=== PATIENT | female | born 1985 | race Caucasian/White ===

== ENCOUNTER 2023-08-31 10:36 | Emergency (ER) | payer OTHER, SELFPAY ==
[2023-08-31 10:49] VITALS: BP 118/83
--- NOTE | 2023-08-31 12:03 | ED.GENMED ---
History of Present Illness
General
Chief Complaint: Seizure
Source: patient and child care assistant
Exam Limitations: none
Time Seen by Provider: 08/31/23 11:53
Nursing documentation reviewed up to this point in time: agreed with
Travel History
Have you had any contact with someone who has COVID-19?: No
Do you have any symptoms of coronavirus? Fever > 100 degrees, chills, cough, shortness of breath, sore throat, loss of taste or smell, muscle aches, or headache?: No
History of Present Illness
History of Present Illness:
38-year-old female with past medical history of seizure disorder on multiple meds, anxiety bipolar disorder presenting to the emergency department today with concerns of a seizure this morning lasted for few seconds according to staff it was
witnessed. She did fall due to this and hit her top of her head but denies additional trauma does have pain to the top of her head at this point since then has been feeling lightheaded did have an episode of vomiting minimal ongoing nausea. Denies
specific focal numbness weakness chest pain abdominal pain or back pain. She claims that she has been taking all medications as prescribed
Past History
Past History
ED Past Medical History: Seizures, Psychiatric (Bipolar affective disorder) and Other (Obesity)
ED Past Surgical History: Other (History of brain surgery, and foot surgery, VNS)
Social History
Tobacco: Non-smoker
Alcohol: None
Drug: None
Personal: Single
Living: other (SHARED SUPPORT)
Employment: Disabled
Family History
Family History: Unable to obtain
Review of Systems
Review of Systems
Allergies reviewed?: Yes
All Other Systems: ROS reviewed and negative except as documented in HPI and ROS
Phy Exam
Physical Exam
Physical Exam:
GENERAL: Alert , in no apparent distress
EYE: pupils equal and reactive
NECK: Supple, no significant adenopathy.
ENT: o/p clr, mmm.
CARDIAC: Regular rate and rhythm .
LUNGS: Clear breath sounds bilaterally, no acute respiratory distress, no wheezes/rales/rhonchi
ABDOMEN: Soft, without focal tenderness, no r/g, no cvat
NEUROLOGICAL: Alert and oriented, no focal neuro deficits 5/5 upper and lower extremity strength normal sensation with palpating bilaterally normal finger-nose no exam no pronator drift.
SKIN: Warm and dry, skin intact.
MUSCULOSKELETAL: No edema, well perfused.
PSYCH: Normal and appropriate interaction.
Course
Orders/Labs/Results
Orders:
Orders
08/31/23 12:00
CT Head W/o Iv Contrast Urgent
Comment:
Reason For Exam: fall hit head
0.9% Sodium Chloride 1000 ml [Nss] 1,000 ml IV BOLUS
08/31/23 12:01
Electrocardiogram (*1) Stat
Reason for Study: Other
Other Reason for Exam: neuro symptoms
EKG- Treatment ONCE
08/31/23 12:06
Test Result ONCE
08/31/23 13:43
Beta Hcg Serum Qualitative Screen [HCG, Serum Qualitative Screen] Urgent
Complete Blood Count/With Diff Urgent
Comprehensive Metabolic Panel Urgent
Depakane Urgent
Lamictal [Lamotrigine (Lamictal)] [S] Urgent
Topiramate (Topamax) [S] Urgent
08/31/23 14:59
Primidone and Metabolite [S] Urgent
Comment: PLEASE COLLECT 2 RED NSST
Abnormal Lab Results
08/31/23
13:43
MCHC 31.4 L g/dL
(33.0-37.0)
RDW 14.6 H %
(11.5-14.5)
Neutrophils % 77.9 H %
(42.2-75.2)
Lymphocytes % 16.8 L %
(20.5-51.1)
Carbon Dioxide 21 L mmol/L
(22-30)
08/31/23 13:43
08/31/23 13:43
Vital Signs
Initial and Last Documented VS:
Initial Vital Signs
Temp Pulse Resp BP Pulse Ox
98.1 F 72 18 118/83 96
08/31/23 10:49 08/31/23 10:49 08/31/23 10:49 08/31/23 10:49 08/31/23 10:49
Last Documented Vital Signs
Temp Pulse Resp BP Pulse Ox
98.1 F 72 18 118/83 96
08/31/23 10:49 08/31/23 10:49 08/31/23 10:49 08/31/23 10:49 08/31/23 10:49
MDM/Problems Addressed
MDM/Problems Addressed:
38-year-old female presenting to the emergency department today with concerns of a seizure this morning. Does have these frequently and has multiple per week despite appropriate care and close follow-up with Luke. Today she had a fall and hit the
top of her head after falling she has had ongoing lightheadedness and episode of vomiting and does have some ongoing nausea. No visible signs of trauma on exam normal neurologic evaluation from head to toe patient was able to give me full history
and is able to interact normally. Patient in no distress throughout ER stay labs unremarkable CT negative valproic acid level normal. Patient able to walk with steady gait stable for discharge advised for close follow-up with neurology.
*Critical Care Note
Total Time (30-74mins, 75-104mins- exclusive of procedures): Not Applicable
ED Attending Note
-
Portions of this chart may have been created with voice recognition software.� Occasional wrong word or��sound alike� substitutions may have occurred due to the inherent limitations of voice recognition software.
Discharge Plan
Departure
Patient Disposition: Home (Routine Discharge)
Date of Disposition: 08/31/23
Time of Disposition: 15:13
Patient with high blood pressure during this ER visit?: No
Condition: Good
Covid-19: Not Applicable
Discharge Problem:
Seizure
Instructions: Seizures, Adult (DC)
Prescriptions:
No Action
lamotrigine [Lamictal] 200 MG tablet
200 mg PO Q12H
melatonin 3 MG tablet
3 mg PO HS
primidone 250 MG tablet
250 mg PO Q12H
topiramate [Topamax] 200 MG tablet
200 mg PO BID
pyridoxine (vitamin B6) [Vitamin B-6] 100 MG tablet
300 mg PO BID
mirtazapine 15 MG tablet
15 mg PO HS
Patient Comments:
08/28/2020: take w/ 7.5mg = 22.5mg
diazepam [Valium] 10 MG tablet
10 mg PO BID@0800,1700
Patient Comments:
08/28/2020: last filled 07/05/20, 60 tabs for 30 days from [facility]
cholecalciferol (vitamin D3) 1,000 UNITS tablet
1,000 units PO DAILY
multivitamin with folic acid [Tab-A-Sandra] 1 TABLET tablet
1 tab PO DAILY
sennosides-docusate sodium [Senokot-S] 8.6-50 mg Tablet
2 tab-cap PO DAILY
cyanocobalamin (vitamin B-12) [Vitamin B-12] 1,000 mcg Tablet
1,000 mcg PO DAILY
folic acid 1 mg tablet
1 mg PO DAILY
aripiprazole 20 mg tablet
20 mg PO DAILY
triamcinolone acetonide 0.1 % Cream
1 applic TOPICAL HS PRN (Reason: eczema)
Rx Instructions:
apply to both hands
hydrocortisone [Anusol-HC] 2.5 % Cream With Perineal Applicator
1 applic [place] BID PRN (Reason: hemmorrhoids)
benzonatate 100 mg Capsule
100 mg PO TID PRN (Reason: cough)
Nayzilam 5 mg/spray (0.1 mL) [place],Non-Aerosol
1 spray INTRANASAL PRN PRN (Reason: seizure>3min/cluster)
Rx Instructions:
Seizure > 3 min/ Seizures cluster, may repeat one time in other nostril if seizure persists in additional 10 mins
naltrexone 50 mg Tablet
50 mg PO DAILY
pseudoephedrine-guaifenesin [Mucinex D] 60-600 mg Tablet Extended Release 12 Hr
1 tab PO BID PRN (Reason: cold symptoms)
valproic acid 250 mg capsule
1,000 mg PO Q12H
lamotrigine 25 mg tablet
50 mg PO HS
ibuprofen 400 mg Tablet
400 mg PO Q4H PRN (Reason: mild pain)
sertraline 50 mg tablet
50 mg PO DAILY
Referrals:
Enedelia Naylor CRNP [Family Provider] -
Activity Restrictions/Additional Instructions:
You came to the emergency department today after open describes as a seizure. Here had a reassuring evaluation with normal head CT normal labs EKG. You may have a mild concussion. Please rest over the next few days as this should improve. Return
to the emergency department any worsening, new or concerning symptoms. Please get close follow-up with the primary care doctor within 1 to 2 days for reassessment.
Interventions
Interventions:
*Risk Screen - Suicide Last Done: 08/31/23 11:46
*General Assessment Last Done: 08/31/23 11:46
*Neglect/Abuse Screening Last Done: 08/31/23 11:46
*ED COVID-19 Vaccine History Last Done: 08/31/23 10:49
ED- Pulmonary Assessment Last Done: 08/31/23 11:46
ED- Neurological Assessment Last Done: 08/31/23 11:46
ED- Cardiac Assessment Last Done: 08/31/23 11:46
ED Swallowing Screen Last Done: 08/31/23 14:00
Discharge Date and Time
Print Language: AMERICAN
[2023-08-31] MEDS: NSS 1000 IV (13:14)
[2023-08-31 13:51] LABS: % Basophils 0.3 % (0-2); % Eosinophils 0.1 % (0-6); % Immature Granulocytes 0.3 % (0-0.5); % Lymphocytes 16.8 % (20.5-51.1); % Monocytes 4.6 % (1.7-9.3); % Neutrophils 77.9 % (42.2-75.2); Absolute Lymphocytes 1.3 10^3/uL (1.2-3.4); Absolute Monocytes 0.4 10^3/uL (0.1-0.6); Absolute Neutrophils 6.1 10^3/uL (1.4-6.5); Hematocrit 39.8 % (37.0-47.0); Hemoglobin 12.5 g/dL (12.0-16.0); Mean Corp Hgb Conc. 31.4 g/dL (33.0-37.0); Mean Corpuscular Hgb 28.2 pg (27.0-31.0); Mean Corpuscular Volume 89.6 fL (81.0-99.0); Nucleated Red Blood Cells % 0 %; Platelet Count 200 10^3/uL (130-400); Red Blood Cell Count 4.44 10^6/uL (4.20-5.40); Red Cell Dist. Width 14.6 % (11.5-14.5); White Blood Cell Count 7.9 10^3/uL (4.8-10.8)
[2023-08-31 14:10] LABS: HCG, Serum Qualitative Screen Negative
[2023-08-31 14:15] LABS: Depakane 54.7 ug/ml (50.0-120.0)
[2023-08-31 14:18] LABS: ALT (SGPT) 22 U/L (0-35); AST (SGOT) 36 U/L (14-36); Albumin 4.8 g/dl (3.5-5.0); Alkaline Phosphatase 52 U/L (38-126); Blood Urea Nitrogen 17 mg/dl (7-17); Calcium 9.4 mg/dl (8.4-10.2); Carbon Dioxide 21 mmol/L (22-30); Chloride 106 mmol/L (98-107); Glucose 98 mg/dl (70-99); Sodium 135 mmol/L (135-145); Total Bilirubin 0.4 mg/dl (0.2-1.3); Total Protein 7.8 g/dl (6.3-8.2); eGFR > 60.00
[2023-08-31 15:33] VITALS: BP 115/85
[2023-09-03 14:03] LABS: Lamotrigine (Lamictal) 11.7 ug/mL (3.0-15.0); Topiramate (Topamax) 4.9 ug/mL (5.0-20.0)
[2023-09-03 14:07] LABS: Primidone 3.6 ug/mL (5.0-12.0)
== END 2023-08-31 15:35 | disposition home or self-care (01) ==
LOC: EMR 10:36
PROVIDERS: Physician Assistant; EMERGENCY PHYSICIAN Emergency Medicine; FAMILY PHYSICIAN Nurse Practitioner Family
DX: G40.909 Epilepsy, unspecified, not intractable, without status epilepticus (principal); F41.9 Anxiety disorder, unspecified; F31.9 Bipolar disorder, unspecified; E66.9 Obesity, unspecified
CPT/HCPCS: 99284; 70450; 80053; 80164; 80175; 80184; 80188; 80201; 84703; 85025; 93005

== ENCOUNTER 2023-09-23 10:16 | Emergency (ER) | payer OTHER, SELFPAY ==
[2023-09-23 10:18] VITALS: BP 165/93
--- NOTE | 2023-09-23 11:10 | ED.GENMED ---
History of Present Illness
General
Chief Complaint: Head Injury
Source: patient and patient care secretary
Exam Limitations: clinical condition
Time Seen by Provider: 09/23/23 10:28
Travel History
Have you had any contact with someone who has COVID-19?: No
Do you have any symptoms of coronavirus? Fever > 100 degrees, chills, cough, shortness of breath, sore throat, loss of taste or smell, muscle aches, or headache?: No
History of Present Illness
History of Present Illness:
38-year-old female with a long history of seizures presents after falling and hitting her head fairly hard. Her caregiver thinks she probably had a brief seizure. She has no increase in her frequency of seizures. Normally has 1-2 to per day.
Here because of potential head injury. Patient is complaining of some headache. No other complaints or injury.
Past History
Past History
ED Past Medical History: Seizures, Psychiatric (Bipolar affective disorder) and Other (Obesity)
ED Past Surgical History: Other (History of brain surgery, and foot surgery, VNS)
Social History
Tobacco: Non-smoker
Alcohol: None
Drug: None
Personal: Single
Living: other (SHARED SUPPORT)
Employment: Disabled
Family History
Family History: Unable to obtain
Review of Systems
Review of Systems
All Other Systems: Not applicable
Constitutional: Denies fever
Respiratory: Reports no symptoms
Cardiac: Reports no symptoms
ABD/GI: Reports no symptoms
Phy Exam
Physical Exam
Physical Exam:
GENERAL: Alert and oriented. No distress. No obvious scalp trauma. However she does point to the top of the head as to the location of her headache.
EYE: Orbits normal.
NECK: Supple, nontender
ENT: Pharynx without erythema
CARDIAC: Regular rate and rhythm without any obvious murmurs.
LUNGS: Clear breath sounds,normal
ABDOMEN: Soft, without focal tenderness or distention
NEUROLOGICAL: Alert. Nonfocal
SKIN: Warm and dry, no rash or lesion, no discoloration, skin intact.
MUSCULOSKELETAL: No edema,no deformity.Good color
PSYCH: Normal and appropriate interaction.
Course
Orders/Labs/Results
Orders:
Orders
09/23/23 10:39
CT Cervical Spine W/o Iv Contr Urgent
Comment:
Reason For Exam: trauma
CT Head W/o Iv Contrast Urgent
Comment:
Reason For Exam: trauma
Cardiac Monitoring- Treatment ONCE
Vital Signs
Initial and Last Documented VS:
Initial Vital Signs
Temp Pulse Resp BP Pulse Ox
99.0 F 90 16 165/93 96
09/23/23 10:18 09/23/23 10:18 09/23/23 10:18 09/23/23 10:18 09/23/23 10:18
Last Documented Vital Signs
Temp Pulse Resp BP Pulse Ox
99.0 F 78 24 104/68 99
09/23/23 10:18 09/23/23 12:15 09/23/23 12:15 09/23/23 12:00 09/23/23 12:15
MDM/Problems Addressed
Differential Diagnosis Includes:
Patient will have a CT of the head and cervical spine based on the mechanism. Clinically no findings of any significant trauma. No chest wall tenderness abdomen is nontender pelvis is stable. Lower extremities are negative. Upper extremities are
negative. She apparently got up and ambulated after this episode. As for her seizures these are baseline and does not warrant further evaluation at this time.
*Radiology
Radiology exam reviewed: radiology read reviewed (Negative CTs)
*Pulse Oximetry
Patient hypoxic: no
*Keyboard Specialist Interpretation
Rate: normal
Interpretation: normal
Heart Rate: 70
Rhythm: sinus
*Critical Care Note
Total Time (30-74mins, 75-104mins- exclusive of procedures): Not Applicable
Data Reviewed
Review of Other/Old Records Reveals: Labs, Records and Testing
Update Note
Update Note:
Patient medically stable. Neurologic baseline. Again no indication for further seizure workup. This has been stable. Discharged to follow-up
ED Attending Note
-
Portions of this chart may have been created with voice recognition software.� Occasional wrong word or��sound alike� substitutions may have occurred due to the inherent limitations of voice recognition software.
Discharge Plan
Departure
Patient Disposition: Home (Routine Discharge)
Date of Disposition: 09/23/23
Time of Disposition: 12:35
Patient with high blood pressure during this ER visit?: No
Discharge Problem:
Head injury, Seizure/history of seizures
Instructions: Seizures, Adult (DC), Head Injury in Adults (DC)
Prescriptions:
No Action
lamotrigine [Lamictal] 200 MG tablet
200 mg PO Q12H
melatonin 3 MG tablet
3 mg PO HS
primidone 250 MG tablet
250 mg PO Q12H
topiramate [Topamax] 200 MG tablet
200 mg PO BID
pyridoxine (vitamin B6) [Vitamin B-6] 100 MG tablet
300 mg PO BID
mirtazapine 15 MG tablet
15 mg PO HS
Patient Comments:
08/28/2020: take w/ 7.5mg = 22.5mg
diazepam [Valium] 10 MG tablet
10 mg PO BID@0800,1700
Patient Comments:
08/28/2020: last filled 07/05/20, 60 tabs for 30 days from [facility]
cholecalciferol (vitamin D3) 1,000 UNITS tablet
1,000 units PO DAILY
multivitamin with folic acid [Tab-A-Sandra] 1 TABLET tablet
1 tab PO DAILY
sennosides-docusate sodium [Senokot-S] 8.6-50 mg Tablet
2 tab-cap PO DAILY
cyanocobalamin (vitamin B-12) [Vitamin B-12] 1,000 mcg Tablet
1,000 mcg PO DAILY
folic acid 1 mg tablet
1 mg PO DAILY
aripiprazole 20 mg tablet
20 mg PO DAILY
triamcinolone acetonide 0.1 % Cream
1 applic TOPICAL HS PRN (Reason: eczema)
Rx Instructions:
apply to both hands
hydrocortisone [Anusol-HC] 2.5 % Cream With Perineal Applicator
1 applic [place] BID PRN (Reason: hemmorrhoids)
benzonatate 100 mg Capsule
100 mg PO TID PRN (Reason: cough)
Nayzilam 5 mg/spray (0.1 mL) [place],Non-Aerosol
1 spray INTRANASAL PRN PRN (Reason: seizure>3min/cluster)
Rx Instructions:
Seizure > 3 min/ Seizures cluster, may repeat one time in other nostril if seizure persists in additional 10 mins
naltrexone 50 mg Tablet
50 mg PO DAILY
pseudoephedrine-guaifenesin [Mucinex D] 60-600 mg Tablet Extended Release 12 Hr
1 tab PO BID PRN (Reason: cold symptoms)
valproic acid 250 mg capsule
1,000 mg PO Q12H
lamotrigine 25 mg tablet
50 mg PO HS
ibuprofen 400 mg Tablet
400 mg PO Q4H PRN (Reason: mild pain)
sertraline 50 mg tablet
50 mg PO DAILY
Referrals:
Enedelia Naylor CRNP [Family Provider] - Follow up in 2-3 days
Activity Restrictions/Additional Instructions:
Follow-up with her primary physician and neurologist concerning her seizures
Interventions
Interventions:
*Risk Screen - Suicide Last Done: 09/23/23 10:20
*General Assessment Last Done: 09/23/23 10:37
*Neglect/Abuse Screening Last Done: 09/23/23 10:20
ED- Fall Risk Assessment Last Done: 09/23/23 12:39
*ED COVID-19 Vaccine History Last Done: 09/23/23 10:37
*Nursing Disposition Last Done: 09/23/23 12:39
ED- Neurological Assessment Last Done: 09/23/23 10:37
ED-Skin Assessment Last Done: 09/23/23 10:39
Discharge Date and Time
Print Language: BANGLADESHI
[2023-09-23 11:38] VITALS: BP 97/69
[2023-09-23 12:00] VITALS: BP 104/68
== END 2023-09-23 12:48 | disposition home or self-care (01) ==
LOC: EMR 10:16
PROVIDERS: EMERGENCY PHYSICIAN Emergency Medicine; FAMILY PHYSICIAN Nurse Practitioner Family
DX: S09.90XA Unspecified injury of head, initial encounter (principal); G40.909 Epilepsy, unspecified, not intractable, without status epilepticus; W19.XXXA Unspecified fall, initial encounter; F31.9 Bipolar disorder, unspecified; E66.9 Obesity, unspecified
CPT/HCPCS: 99284; 70450; 72125

== ENCOUNTER 2023-10-24 18:39 | Emergency (ER) | payer OTHER, SELFPAY ==
[2023-10-24 18:44] VITALS: BP 128/83
[2023-10-24 19:49] LABS: % Basophils 0.4 % (0-2); % Eosinophils 0.6 % (0-6); % Immature Granulocytes 0.3 % (0-0.5); % Monocytes 6.5 % (1.7-9.3); % Neutrophils 55.2 % (42.2-75.2); Absolute Eosinophils 0.1 10^3/uL (0-0.7); Absolute Lymphocytes 2.9 10^3/uL (1.2-3.4); Absolute Monocytes 0.5 10^3/uL (0.1-0.6); Absolute Neutrophils 4.4 10^3/uL (1.4-6.5); Hematocrit 34.7 % (37.0-47.0); Hemoglobin 11.7 g/dL (12.0-16.0); Mean Corp Hgb Conc. 33.7 g/dL (33.0-37.0); Mean Corpuscular Hgb 28.2 pg (27.0-31.0); Mean Corpuscular Volume 83.6 fL (81.0-99.0); Nucleated Red Blood Cells % 0 %; Platelet Count 211 10^3/uL (130-400); Red Blood Cell Count 4.15 10^6/uL (4.20-5.40); Red Cell Dist. Width 14.6 % (11.5-14.5); White Blood Cell Count 7.9 10^3/uL (4.8-10.8)
[2023-10-24 20:02] LABS: ALT (SGPT) 16 U/L (0-35); AST (SGOT) 30 U/L (14-36); Albumin 4.3 g/dl (3.5-5.0); Alkaline Phosphatase 37 U/L (38-126); Blood Urea Nitrogen 18 mg/dl (7-17); Calcium 9.5 mg/dl (8.4-10.2); Carbon Dioxide 20 mmol/L (22-30); Chloride 107 mmol/L (98-107); Glucose 101 mg/dl (70-99); Sodium 137 mmol/L (135-145); Total Bilirubin 0.3 mg/dl (0.2-1.3); eGFR > 60.00
--- NOTE | 2023-10-24 23:17 | ED.GENMED ---
History of Present Illness
General
Chief Complaint: Head Injury
Source: patient and home care aide
Exam Limitations: none
Time Seen by Provider: 10/24/23 19:08
Nursing documentation reviewed up to this point in time: agreed with
Travel History
Have you had any contact with someone who has COVID-19?: No
Do you have any symptoms of coronavirus? Fever > 100 degrees, chills, cough, shortness of breath, sore throat, loss of taste or smell, muscle aches, or headache?: No
History of Present Illness
History of Present Illness:
38-year-old female with a past medical history of seizures, tubular sclerosis, GERD, behavioral issues who presents to the emergency room from her living facility accompanied by caregivers for evaluation of head trauma after a seizure. Patient
reportedly has a history of very frequent seizures and is on multiple AEDs. She apparently had an episode today while she [place] where she dropped her knees and had a typical one of her brief seizures. She has since returned to
baseline but during this episode she fell to the ground and hit her head and facility protocol is to send for evaluation given head trauma. Patient says that she feels fine and offers no complaints here. She denies any headache, neck pain, chest
pain abdominal pain, nausea or any other issues. Staff says that she has been compliant with all of her medications. She has been having somewhat more frequent seizures and is following with neurology as an outpatient.
Past History
Past History
ED Past Medical History: Seizures, Psychiatric (Bipolar affective disorder) and Other (Obesity)
ED Past Surgical History: Other (History of brain surgery, and foot surgery, VNS)
Social History
Tobacco: Non-smoker
Alcohol: None
Drug: None
Personal: Single
Living: other (SHARED SUPPORT)
Employment: Disabled
Family History
Family History: Unable to obtain
Review of Systems
Review of Systems
All Other Systems: ROS reviewed and negative except as documented in HPI and ROS
Constitutional: Denies fever
Respiratory: Denies trouble breathing
Cardiac: Denies chest pain
ABD/GI: Denies abdominal pain, nausea or vomiting
: Denies flank pain
Musculoskeletal: Denies neck pain or back pain
Neurological: Denies dizzy, headache, weakness or numbness
Phy Exam
Physical Exam
Physical Exam:
General: Awake, alert, oriented x3; no acute distress
Head: Normocephalic, atraumatic
Eyes: Conjunctiva normal, EOMI, pupils equal round and reactive to light bilaterally
Throat: Airway intact, handling secretions
Neck: Trachea midline, supple without meningismus
Lungs: Clear to auscultation bilaterally, no wheezing, rales, rhonchi
Heart: Regular rate and rhythm, no murmurs, gallops, or rubs
Abd: Soft, non distended, nontender
Neuro: Cranial nerves grossly intact, speech fluid, no motor or sensory deficits
Skin: no rash
Extremities: No edema in extremities, equal pulses in all extremities
Scores
Heart Failure Risk
Heart Failure Risk Score: Not Applicable
Heart Score for Chest Pain Patients
STEMI patient?: Not applicable
Withdrawal Assessment of Alcohol
Withdrawal Assessment Completed?: Not applicable
Course
Orders/Labs/Results
Orders:
Orders
10/24/23 19:10
Electrocardiogram (*1) Urgent
Reason for Study: Syncope
CT Head W/o Iv Contrast Urgent
Comment:
Reason For Exam: seizure, head trauma
EKG- Treatment ONCE
10/24/23 19:43
Complete Blood Count/With Diff Urgent
Comprehensive Metabolic Panel Urgent
Abnormal Lab Results
10/24/23
19:43
RBC 4.15 L 10^6/uL
(4.20-5.40)
Hgb 11.7 L g/dL
(12.0-16.0)
Hct 34.7 L %
(37.0-47.0)
RDW 14.6 H %
(11.5-14.5)
Carbon Dioxide 20 L mmol/L
(22-30)
BUN 18 H mg/dl
(7-17)
Glucose 101 H mg/dl
(70-99)
Alkaline Phosphatase 37 L U/L
(38-126)
10/24/23 19:43
10/24/23 19:43
Vital Signs
Initial and Last Documented VS:
Initial Vital Signs
Temp Pulse Resp BP Pulse Ox
37.3 C 80 18 128/83 98
10/24/23 18:44 10/24/23 18:44 10/24/23 18:44 10/24/23 18:44 10/24/23 18:44
Last Documented Vital Signs
Temp Pulse Resp BP Pulse Ox
37.3 C 80 18 128/83 98
10/24/23 18:44 10/24/23 18:44 10/24/23 18:44 10/24/23 18:44 10/24/23 18:44
MDM/Problems Addressed
Differential Diagnosis Includes:
Minor head trauma
MDM/Problems Addressed:
38-year-old female presents for evaluation after a seizure�had one of her typical seizures but fell and hit her head. Staff brought in for assessment given trauma. Back to baseline now. Vital signs normal. Reassuring exam. Sent for CT head
which was negative. Sent basic screening labs which were essentially unremarkable. Observed here in the emergency room with no additional seizure activity. Will discharge and have patient follow-up with primary neurologist to discuss AED
management.
Chronic conditions affecting care:
Behavioral issues, seizures
*Radiology
Radiology exam reviewed: radiology read reviewed
*Pulse Oximetry
Patient hypoxic: no
*EKG
Interpreted by ED Provider?: Yes
Heart Rate: 80
Rate: normal
Rhythm: sinus
[place]: normal axis
Interval: normal interval
QRS Pattern: normal QRS
Ischemia: no ischemia
*Critical Care Note
Total Time (30-74mins, 75-104mins- exclusive of procedures): Not Applicable
Data Reviewed
Review of Other/Old Records Reveals: Labs and Records
Source: patient and home care aide
ED Attending Note
-
Portions of this chart may have been created with voice recognition software.� Occasional wrong word or��sound alike� substitutions may have occurred due to the inherent limitations of voice recognition software.
Discharge Plan
Departure
Patient Disposition: Home (Routine Discharge)
Date of Disposition: 10/24/23
Time of Disposition: 21:29
Patient with high blood pressure during this ER visit?: No
Discharge Problem:
Seizure, Head trauma
Instructions: Minor Head Injury (DC), Seizures
Prescriptions:
No Action
lamotrigine [Lamictal] 200 MG tablet
200 mg PO Q12H
melatonin 3 MG tablet
3 mg PO HS
primidone 250 MG tablet
250 mg PO Q12H
topiramate [Topamax] 200 MG tablet
200 mg PO BID
pyridoxine (vitamin B6) [Vitamin B-6] 100 MG tablet
300 mg PO BID
mirtazapine 15 MG tablet
15 mg PO HS
Patient Comments:
08/28/2020: take w/ 7.5mg = 22.5mg
diazepam [Valium] 10 MG tablet
10 mg PO BID@0800,1700
Patient Comments:
08/28/2020: last filled 07/05/20, 60 tabs for 30 days from [facility]
cholecalciferol (vitamin D3) 1,000 UNITS tablet
1,000 units PO DAILY
multivitamin with folic acid [Tab-A-Sandra] 1 TABLET tablet
1 tab PO DAILY
sennosides-docusate sodium [Senokot-S] 8.6-50 mg Tablet
2 tab-cap PO DAILY
cyanocobalamin (vitamin B-12) [Vitamin B-12] 1,000 mcg Tablet
1,000 mcg PO DAILY
folic acid 1 mg tablet
1 mg PO DAILY
aripiprazole 20 mg tablet
20 mg PO DAILY
triamcinolone acetonide 0.1 % Cream
1 applic TOPICAL HS PRN (Reason: eczema)
Rx Instructions:
apply to both hands
hydrocortisone [Anusol-HC] 2.5 % Cream With Perineal Applicator
1 applic [place] BID PRN (Reason: hemmorrhoids)
benzonatate 100 mg Capsule
100 mg PO TID PRN (Reason: cough)
Nayzilam 5 mg/spray (0.1 mL) [place],Non-Aerosol
1 spray INTRANASAL PRN PRN (Reason: seizure>3min/cluster)
Rx Instructions:
Seizure > 3 min/ Seizures cluster, may repeat one time in other nostril if seizure persists in additional 10 mins
naltrexone 50 mg Tablet
50 mg PO DAILY
pseudoephedrine-guaifenesin [Mucinex D] 60-600 mg Tablet Extended Release 12 Hr
1 tab PO BID PRN (Reason: cold symptoms)
valproic acid 250 mg capsule
1,000 mg PO Q12H
lamotrigine 25 mg tablet
50 mg PO HS
ibuprofen 400 mg Tablet
400 mg PO Q4H PRN (Reason: mild pain)
sertraline 50 mg tablet
50 mg PO DAILY
Referrals:
UNKNOWN - PT NOT,INTERVIEWE [Family Provider] -
Activity Restrictions/Additional Instructions:
The patient should follow-up with her normal neurologist to discuss management of her seizure medications after this episode.
Thank you for visiting the Emergency Department at [facility].
1. Please schedule a follow up appointment as directed. Call first thing tomorrow morning to make an appointment.
2. If indicated, please take your medications as instructed and indicated on discharge paperwork.
3. If any of your symptoms do not improve, or persist, or become more severe within 6-12 hours, please return to the emergency department for further care.
4. Please return to the emergency department if you develop a headache, neck pain/stiffness, fever greater than 100.4F, chest pain, shortness of breath, persistent nausea, vomiting, slurred speech, difficulty walking, numbness/tingling, weakness,
signs of infection or any other symptoms that are worrisome to you.
Please call [phone] if you have any questions.
Interventions
Interventions:
*Risk Screen - Suicide Last Done: 10/24/23 18:44
*General Assessment Last Done: 10/24/23 18:44
*Neglect/Abuse Screening Last Done: 10/24/23 18:44
ED- Fall Risk Assessment Last Done: 10/24/23 19:11
*ED COVID-19 Vaccine History Last Done: 10/24/23 21:33
*Nursing Disposition Last Done: 10/24/23 21:33
ED- Neurological Assessment Last Done: 10/24/23 19:11
ED-Skin Assessment Last Done: 10/24/23 19:11
Discharge Date and Time
Discharge Date/Time: 10/24/23 21:35
Print Language: ICELANDIC
== END 2023-10-24 21:35 | disposition home or self-care (01) ==
LOC: EMR 18:39
PROVIDERS: EMERGENCY PHYSICIAN Emergency Medicine
DX: R56.9 Unspecified convulsions (principal); S09.90XA Unspecified injury of head, initial encounter; W19.XXXA Unspecified fall, initial encounter
CPT/HCPCS: 99285; 70450; 80053; 85025; 93005

== ENCOUNTER 2023-11-04 10:18 | Emergency (ER) | payer OTHER, SELFPAY ==
[2023-11-04 10:24] VITALS: BP 124/71
--- NOTE | 2023-11-04 10:39 | ED.GENMED ---
History of Present Illness
General
Chief Complaint: Head Injury
Source: patient
Time Seen by Provider: 11/04/23 10:30
Travel History
Have you had any contact with someone who has COVID-19?: No
Do you have any symptoms of coronavirus? Fever > 100 degrees, chills, cough, shortness of breath, sore throat, loss of taste or smell, muscle aches, or headache?: No
History of Present Illness
History of Present Illness:
38-year-old female with past medical history of seizure disorder, anxiety, bipolar disorder, mood disorder presenting to the emergency department with caregiver who states that around 9:15 AM patient had a witnessed seizure while in the bathroom and
hit the back of her head on the shower chair. Per protocol patient was brought to the emergency department to be evaluated. Patient has no complaints at this time including, visual changes, focal weakness or numbness or any other concerns.
Patient denies any tongue lacerations. Per caregiver, patient is at her usual baseline. She gets a couple of seizures per week which is normal for her.
Past History
Past History
ED Past Medical History: Seizures, Psychiatric (Bipolar affective disorder) and Other (Obesity)
ED Past Surgical History: Other (History of brain surgery, and foot surgery, VNS)
Social History
Tobacco: Non-smoker
Alcohol: None
Drug: None
Personal: Single
Living: other ([employer])
Employment: Disabled
Family History
Family History: Unable to obtain
Review of Systems
Review of Systems
All Other Systems: ROS reviewed and negative except as documented in HPI and ROS
Phy Exam
Physical Exam
Physical Exam:
GENERAL: Alert , in no apparent distress
EYE: conjunctiva clear
NECK: Supple
ENT: o/p clr, mmm. No tongue lacerations
CARDIAC: Regular rate and rhythm
LUNGS: Clear breath sounds bilaterally, no acute respiratory distress, no wheezes/rales/rhonchi
NEUROLOGICAL: Alert and oriented x 3
SKIN: Warm and dry, skin intact.
MUSCULOSKELETAL: well perfused.
PSYCH: Normal and appropriate interaction.
Scores
Heart Failure Risk
Heart Failure Risk Score: Not Applicable
Heart Score for Chest Pain Patients
STEMI patient?: Not applicable
Withdrawal Assessment of Alcohol
Withdrawal Assessment Completed?: Not applicable
Course
Vital Signs
Initial and Last Documented VS:
Initial Vital Signs
Temp Pulse Resp BP Pulse Ox
99.0 F 91 18 124/71 98
11/04/23 10:24 11/04/23 10:24 11/04/23 10:24 11/04/23 10:24 11/04/23 10:24
Last Documented Vital Signs
Temp Pulse Resp BP Pulse Ox
99.0 F 91 18 124/71 98
11/04/23 10:24 11/04/23 10:24 11/04/23 10:24 11/04/23 10:24 11/04/23 10:24
MDM/Problems Addressed
Differential Diagnosis Includes:
Breakthrough seizure, no concern for acute intracranial pathology, no signs of infectious etiology
MDM/Problems Addressed:
38-year-old female presenting the emergency department for evaluation after a seizure causing her to fall and hit the back of her head again a shower chair. Patient denying any headache and states she feels fine. Caregiver states patient has been
acting normally but per protocol was advised to bring patient to the ER to be evaluated. At present time I do not feel patient needs a stat CT given lack of symptoms and physical exam findings. No signs of head trauma. Patient and caregiver seem
agreeable but caregiver wanted to contact their boss prior to discharging the patient.
Chronic conditions affecting care: Neurological disorder
Acute Exacerbation and/or Progression of Chronic Illness: Neurological disorder
*Pulse Oximetry
Patient hypoxic: no
*Critical Care Note
Total Time (30-74mins, 75-104mins- exclusive of procedures): Not Applicable
Patient Management
Escalation/DeEscalation of care consider admission/obs:
Spoke to the public area supervisor of patient's facility. They feel comfortable taking the patient back. Aware of return precautions for any severe headache, change in behavior, vomiting or any other concerns. Patient is otherwise stable for discharge.
ED Attending Note
-
Portions of this chart may have been created with voice recognition software.� Occasional wrong word or��sound alike� substitutions may have occurred due to the inherent limitations of voice recognition software.
Discharge Plan
Departure
Patient Disposition: Home (Routine Discharge)
Date of Disposition: 11/04/23
Time of Disposition: 11:00
Patient with high blood pressure during this ER visit?: No
Discharge Problem:
Seizure, Head injury
Instructions: Head Injury in Adults (DC)
Prescriptions:
No Action
lamotrigine [Lamictal] 200 MG tablet
200 mg PO Q12H
melatonin 3 MG tablet
3 mg PO HS
primidone 250 MG tablet
250 mg PO Q12H
topiramate [Topamax] 200 MG tablet
200 mg PO BID
pyridoxine (vitamin B6) [Vitamin B-6] 100 MG tablet
300 mg PO BID
mirtazapine 15 MG tablet
15 mg PO HS
Patient Comments:
08/28/2020: take w/ 7.5mg = 22.5mg
diazepam [Valium] 10 MG tablet
10 mg PO BID@0800,1700
Patient Comments:
08/28/2020: last filled 07/05/20, 60 tabs for 30 days from [facility]
cholecalciferol (vitamin D3) 1,000 UNITS tablet
1,000 units PO DAILY
multivitamin with folic acid [Tab-A-Sandra] 1 TABLET tablet
1 tab PO DAILY
sennosides-docusate sodium [Senokot-S] 8.6-50 mg Tablet
2 tab-cap PO DAILY
cyanocobalamin (vitamin B-12) [Vitamin B-12] 1,000 mcg Tablet
1,000 mcg PO DAILY
folic acid 1 mg tablet
1 mg PO DAILY
aripiprazole 20 mg tablet
20 mg PO DAILY
triamcinolone acetonide 0.1 % Cream
1 applic TOPICAL HS PRN (Reason: eczema)
Rx Instructions:
apply to both hands
hydrocortisone [Anusol-HC] 2.5 % Cream With Perineal Applicator
1 applic [place] BID PRN (Reason: hemmorrhoids)
benzonatate 100 mg Capsule
100 mg PO TID PRN (Reason: cough)
Nayzilam 5 mg/spray (0.1 mL) [place],Non-Aerosol
1 spray INTRANASAL PRN PRN (Reason: seizure>3min/cluster)
Rx Instructions:
Seizure > 3 min/ Seizures cluster, may repeat one time in other nostril if seizure persists in additional 10 mins
naltrexone 50 mg Tablet
50 mg PO DAILY
pseudoephedrine-guaifenesin [Mucinex D] 60-600 mg Tablet Extended Release 12 Hr
1 tab PO BID PRN (Reason: cold symptoms)
valproic acid 250 mg capsule
1,000 mg PO Q12H
lamotrigine 25 mg tablet
50 mg PO HS
ibuprofen 400 mg Tablet
400 mg PO Q4H PRN (Reason: mild pain)
sertraline 50 mg tablet
50 mg PO DAILY
Referrals:
Enedelia Naylor CRNP [Family Provider] -
Interventions
Interventions:
*Risk Screen - Suicide Last Done: 11/04/23 11:00
*General Assessment Last Done: 11/04/23 11:00
*Neglect/Abuse Screening Last Done: 11/04/23 11:00
*ED COVID-19 Vaccine History Last Done: 11/04/23 10:24
*Nursing Disposition Last Done: 11/04/23 11:23
ED- Neurological Assessment Last Done: 11/04/23 11:00
ED-Skin Assessment Last Done: 11/04/23 11:00
Discharge Date and Time
Discharge Date/Time: 11/04/23 11:24
Print Language: [place] KORE[place]
== END 2023-11-04 11:24 | disposition home or self-care (01) ==
LOC: EMR 10:18
PROVIDERS: EMERGENCY PHYSICIAN Emergency Medicine; FAMILY PHYSICIAN Nurse Practitioner Family
DX: G40.909 Epilepsy, unspecified, not intractable, without status epilepticus (principal); S09.90XA Unspecified injury of head, initial encounter; X58.XXXA Exposure to other specified factors, initial encounter; F31.9 Bipolar disorder, unspecified; E66.9 Obesity, unspecified
CPT/HCPCS: 99282

== ENCOUNTER 2023-11-13 13:24 | Emergency (ER) | payer OTHER, SELFPAY ==
[2023-11-13 13:27] VITALS: BP 119/84
--- NOTE | 2023-11-13 13:42 | ED.GENMED ---
History of Present Illness
General
Chief Complaint: Musculo-Skeletal Complaint
Source: patient and care connector
Exam Limitations: none
Time Seen by Provider: 11/13/23 13:35
Nursing documentation reviewed up to this point in time: agreed with
History of Present Illness
History of Present Illness:
38-year-old female presents emergency department due to right foot pain after having a seizure and getting her foot stuck under a cabinet. This occurred on Thursday. While in waiting room she had a seizure. Staff states it is similar to her
previous seizures.
Past History
Past History
ED Past Medical History: Seizures, Psychiatric (Bipolar affective disorder) and Other (Obesity)
ED Past Surgical History: Other (History of brain surgery, and foot surgery, VNS)
Social History
Tobacco: Non-smoker
Alcohol: None
Drug: None
Personal: Single
Living: other (SHARED SUPPORT)
Employment: Disabled
Family History
Family History: Unable to obtain
Review of Systems
Review of Systems
Allergies reviewed?: Yes
All Other Systems: Not applicable
Constitutional: Reports no symptoms
EENT: Reports no symptoms
Respiratory: Reports no symptoms
Cardiac: Reports no symptoms
ABD/GI: Reports no symptoms
: Reports no symptoms
Musculoskeletal: Reports joint pain (Right foot pain)
Skin: Reports no symptoms
Neurological: Reports no symptoms
Endocrine: Reports no symptoms
Hematologic/Lymphatic: Reports no symptoms
Psychiatric: Reports no symptoms
Phy Exam
Physical Exam
Physical Exam:
Physical Exam
General: no apparent distress, not acutely ill
Neck: supple. no meningeal signs. normal posterior pharynx
Heart: s1/s2 regular rate and rhythm, no murmur. equal radial
pulses.
HEENT: Pupils equal round reactive to light, EOMI
Lungs: no acute respiratory distress. clear bilaterally
Abdomen: normal bowel sounds. not tender. no CVAT
Neuro: alert and oriented. no focal neurological deficits cranial nerves II through XII intact
Skin: no rash
Psychiatric: well kept. interactive and cooperative
Extremities: no calf tenderness. negative homans. good distal pulses, mild swelling bilateral feet, mild tenderness to palpation midfoot
Course
Orders/Labs/Results
Orders:
Orders
11/13/23 13:30
CR Foot - Left Min 3 Views Urgent
Comment:
Reason For Exam: injury
11/13/23 15:17
Acetaminophen [Tylenol] 650 mg PO NOW STA
Vital Signs
Initial and Last Documented VS:
Initial Vital Signs
Temp Pulse Resp BP Pulse Ox
98.3 F 102 20 119/84 98
11/13/23 13:27 11/13/23 13:27 11/13/23 13:27 11/13/23 13:27 11/13/23 13:27
Last Documented Vital Signs
Temp Pulse Resp BP Pulse Ox
98.3 F 102 20 119/84 98
11/13/23 13:27 11/13/23 13:27 11/13/23 13:27 11/13/23 13:27 11/13/23 13:27
MDM/Problems Addressed
Differential Diagnosis Includes:
Foot fracture, seizure
MDM/Problems Addressed:
38-year-old female with left foot sprain, seizure while in ED. Seizures similar to prior seizures. Patient stable for discharge.
Chronic conditions affecting care: Neurological disorder (Seizures)
Acute Exacerbation and/or Progression of Chronic Illness: Neurological disorder (Seizures)
*Radiology
Radiology exam reviewed: preliminary read by ED provider (Left foot x-ray no signs of fracture)
*Pulse Oximetry
Patient hypoxic: no
*EKG
Interpreted by ED Provider?: NA
*Flitch Hanger Interpretation
Rate: Flitch Hanger- N/A
*Critical Care Note
Total Time (30-74mins, 75-104mins- exclusive of procedures): Not Applicable
Patient Management
Social determinants of health affecting care: Living situation
Escalation/DeEscalation of care consider admission/obs:
admit not indicated
ED Attending Note
-
Portions of this chart may have been created with voice recognition software.� Occasional wrong word or��sound alike� substitutions may have occurred due to the inherent limitations of voice recognition software.
Discharge Plan
Departure
Patient Disposition: Home (Routine Discharge)
Date of Disposition: 11/13/23
Time of Disposition: 15:14
Patient with high blood pressure during this ER visit?: No
Condition: Good
Discharge Problem:
Sprain of foot, left, Seizure
Instructions: Foot Sprain ED, Seizures, Adult ED
Prescriptions:
No Action
lamotrigine [Lamictal] 200 MG tablet
200 mg PO Q12H
melatonin 3 MG tablet
3 mg PO HS
primidone 250 MG tablet
250 mg PO Q12H
topiramate [Topamax] 200 MG tablet
200 mg PO BID
pyridoxine (vitamin B6) [Vitamin B-6] 100 MG tablet
300 mg PO BID
mirtazapine 15 MG tablet
15 mg PO HS
Patient Comments:
08/28/2020: take w/ 7.5mg = 22.5mg
diazepam [Valium] 10 MG tablet
10 mg PO BID@0800,1700
Patient Comments:
08/28/2020: last filled 07/05/20, 60 tabs for 30 days from [facility]
cholecalciferol (vitamin D3) 1,000 UNITS tablet
1,000 units PO DAILY
multivitamin with folic acid [Tab-A-Sandra] 1 TABLET tablet
1 tab PO DAILY
sennosides-docusate sodium [Senokot-S] 8.6-50 mg Tablet
2 tab-cap PO DAILY
cyanocobalamin (vitamin B-12) [Vitamin B-12] 1,000 mcg Tablet
1,000 mcg PO DAILY
folic acid 1 mg tablet
1 mg PO DAILY
aripiprazole 20 mg tablet
20 mg PO DAILY
triamcinolone acetonide 0.1 % Cream
1 applic TOPICAL HS PRN (Reason: eczema)
Rx Instructions:
apply to both hands
hydrocortisone [Anusol-HC] 2.5 % Cream With Perineal Applicator
1 applic [place] BID PRN (Reason: hemmorrhoids)
benzonatate 100 mg Capsule
100 mg PO TID PRN (Reason: cough)
Nayzilam 5 mg/spray (0.1 mL) [place],Non-Aerosol
1 spray INTRANASAL PRN PRN (Reason: seizure>3min/cluster)
Rx Instructions:
Seizure > 3 min/ Seizures cluster, may repeat one time in other nostril if seizure persists in additional 10 mins
naltrexone 50 mg Tablet
50 mg PO DAILY
pseudoephedrine-guaifenesin [Mucinex D] 60-600 mg Tablet Extended Release 12 Hr
1 tab PO BID PRN (Reason: cold symptoms)
valproic acid 250 mg capsule
1,000 mg PO Q12H
lamotrigine 25 mg tablet
50 mg PO HS
ibuprofen 400 mg Tablet
400 mg PO Q4H PRN (Reason: mild pain)
sertraline 50 mg tablet
50 mg PO DAILY
Referrals:
Enedelia Naylor CRNP [Family Provider] -
Activity Restrictions/Additional Instructions:
Use tylenol 650 mg every 4 hours for pain as needed. Apply ice for periods of 20 minutes for pain and swelling, 3-4 times per day.
Interventions
Interventions:
*Risk Screen - Suicide Last Done: 11/13/23 13:27
*General Assessment Last Done: 11/13/23 13:27
*Neglect/Abuse Screening Last Done: 11/13/23 13:27
ED-Musculoskeletal Assessment Last Done: 11/13/23 14:17
Discharge Date and Time
Print Language: GAMBIAN
[2023-11-13] MEDS: TYLENOL 650 MG PO (15:23)
== END 2023-11-13 15:25 | disposition home or self-care (01) ==
LOC: EMR 13:24
PROVIDERS: EMERGENCY PHYSICIAN Emergency Medicine; FAMILY PHYSICIAN Nurse Practitioner Family
DX: S93.602A Unspecified sprain of left foot, initial encounter (principal); G40.909 Epilepsy, unspecified, not intractable, without status epilepticus; X58.XXXA Exposure to other specified factors, initial encounter; F31.9 Bipolar disorder, unspecified; E66.9 Obesity, unspecified
CPT/HCPCS: 99283; 73630

== ENCOUNTER 2023-11-17 08:13 | Emergency (ER) | payer OTHER, SELFPAY ==
[2023-11-17 08:19] VITALS: BP 142/96
--- NOTE | 2023-11-17 09:23 | ED.GENMED ---
History of Present Illness
General
Chief Complaint: Head Injury
Source: patient and palliative care specialist
Time Seen by Provider: 11/17/23 08:58
History of Present Illness
History of Present Illness:
38-year-old female with past medical history of seizure disorder, anxiety, bipolar disorder/mood disorder presenting to the emergency department with caregiver from [facility] after patient had a seizure this morning causing her to fall
back and hit the back of her head. Patient has had multiple breakthrough seizures over the last few weeks with caregiver stating that the amount of seizures patient is having is more than her usual. deputy director of public works notified me via telephone that
on October 01 patient saw her neurology team and had her Lamictal increased from 200 mg twice daily to 300 mg twice daily but patient is still having these breakthrough seizures. This is patient's fourth visit to the ER in approximately 2 weeks for
similar. Today patient is noting persistent nausea which she normally does not have after a seizure. States she has some mild posterior headache but no other extremity related injuries. There is no urinary incontinence or tongue biting. No
fevers or infectious symptoms.
Past History
Past History
ED Past Medical History: Seizures, Psychiatric (Bipolar affective disorder) and Other (Obesity)
ED Past Surgical History: Other (History of brain surgery, and foot surgery, VNS)
Social History
Tobacco: Non-smoker
Alcohol: None
Drug: None
Personal: Single
Living: other ([facility])
Employment: Disabled
Family History
Family History: Unable to obtain
Review of Systems
Review of Systems
All Other Systems: ROS reviewed and negative except as documented in HPI and ROS
Phy Exam
Physical Exam
Physical Exam:
GENERAL: Alert , somwhat pale, uncomfortable appearing
Head: Normocephalic atraumatic
EYE: conjunctiva clear, pupils 3 mm bilateral
NECK: Supple, no midline ttp
ENT: o/p clr, mmm.no tongue lacs
CARDIAC: Regular rate and rhythm
LUNGS: Clear breath sounds bilaterally, no acute respiratory distress, no wheezes/rales/rhonchi
NEUROLOGICAL: Alert and oriented x 3
SKIN: Warm and dry, skin intact.
MUSCULOSKELETAL: well perfused.
PSYCH: Normal and appropriate interaction.
Scores
Heart Failure Risk
Heart Failure Risk Score: Not Applicable
Heart Score for Chest Pain Patients
STEMI patient?: Not applicable
Withdrawal Assessment of Alcohol
Withdrawal Assessment Completed?: Not applicable
Course
Orders/Labs/Results
Orders:
Orders
11/17/23 09:05
CT Head W/o Iv Contrast Urgent
Comment:
Reason For Exam: recurring seizures, vomiting
Ondansetron Injectable [Zofran] 4 mg IV NOW STA
11/17/23 10:28
Basic Metabolic Panel Urgent
Complete Blood Count/With Diff Urgent
Lamotrigine (Lamictal) [S] Urgent
Valproic Acid Level [Depakane] Urgent
11/17/23 12:05
Lorazepam [Ativan] 1 mg IV NOW STA
Lorazepam [Ativan] 2 mg .ROUTE .STK-MED ONE
Abnormal Lab Results
11/17/23
10:28
Hgb 11.9 L g/dL
(12.0-16.0)
MCHC 31.8 L g/dL
(33.0-37.0)
RDW 14.7 H %
(11.5-14.5)
Neutrophils % 76.4 H %
(42.2-75.2)
Lymphocytes % 17.2 L %
(20.5-51.1)
Chloride 109 H mmol/L
(98-107)
Carbon Dioxide 21 L mmol/L
(22-30)
11/17/23 10:28
11/17/23 10:28
Vital Signs
Initial and Last Documented VS:
Initial Vital Signs
Temp Pulse Resp BP Pulse Ox
98.5 F 87 20 142/96 95
11/17/23 08:19 11/17/23 08:19 11/17/23 08:19 11/17/23 08:19 11/17/23 08:19
Last Documented Vital Signs
Temp Pulse Resp BP Pulse Ox
98.5 F 80 19 108/67 97
11/17/23 08:19 11/17/23 13:00 11/17/23 13:00 11/17/23 13:00 11/17/23 12:34
Hedis Abstractor consulted with Physician
Hedis Abstractor consulted with physician?: Yes
Name of Physician Consulted: Noh
MDM/Problems Addressed
Differential Diagnosis Includes:
Breakthrough seizure, intracranial bleeding, less concern for infection, electrolyte disturbance
MDM/Problems Addressed:
38-year-old female presenting to the emergency department for evaluation of another breakthrough seizure which she has been experiencing more frequently over the last few weeks. Patient with multiple visits to the emergency department recently here
but breakthrough seizures continue. Recently had Lamictal increased from 200 twice daily to 300 mg twice daily. Follows with [facility] neurology. Given amount of visits to the emergency department with no testing being done
previously combined with patient's worsening appearance today will obtain labs and CT imaging. Zofran for nausea. Reassessment following.
*Radiology
Radiology exam reviewed: radiology read reviewed
*Pulse Oximetry
Patient hypoxic: no
*Critical Care Note
Total Time (30-74mins, 75-104mins- exclusive of procedures): 40
comment:
Critical care statement: A total of 40 minutes of critical care time was provided for this patient. This includes management of unstable vital signs, evaluation of the patient at bedside, reviewing the patient's pertinent medical records, discussion
with consultants, review of old EKGs and review of pertinent medical records. This time with separate from time utilized to perform the aforementioned documented procedures
Data Reviewed
Review of Other/Old Records Reveals: Records
Source: patient and palliative care specialist
Patient Management
Discussion with other providers: Fabrication Lead
Escalation/DeEscalation of care consider admission/obs:
11:32 AM - Patient work up largely unremarkable. No further seizure activity in the ED. Given her multiple visits to the ED this month for seizure, I spoke to our neuro team to discuss possible admission for EEG and med management but given patients
history feel if she were going to be admitted it would be best served and an epilepsy center and would recommend calling her neuro team at [facility]. Call was placed to [facility] to discuss with neuro there
11:50 AM -I spoke to the neuro ICU and neurology team at [facility] and after discussion it was ultimately decided that they would be sending notification to patient's neurology team to help expedite an outpatient follow-up and that if they did not
feel patient's seizures could be effectively managed as an outpatient that they would then bring her in for video EEG monitoring and other testing as. Approximately 2 minutes after getting off the phone with neurology team is notified by patient's
caregiver that she had a second seizure described to be tonic-clonic and lasting approximately 30 to 40 seconds. I went back into the room to evaluate the patient and she did not appear to have any significant postictal phase however is now
tremulous throughout her upper extremities which caregiver state has been happening following her seizures. 1 mg of Ativan was given IV and call back placed to [facility].
12:02 PM - I spoke to neuro physician Dr. Chou who states given recurring seizure there is concern for status epilepticus and that patient should come to [facility] as soon as possible. Decision to transfer was made. Due to concern for status
epilepticus, it was thought to be in patients best interest to airflight the patient. Patient maintaining airway, no hemodynamic instability. [place] flight team to take patient.
ED Attending Note
-
Portions of this chart may have been created with voice recognition software.� Occasional wrong word or��sound alike� substitutions may have occurred due to the inherent limitations of voice recognition software.
Discharge Plan
Departure
Patient Disposition: Acute Care Hospital
Date of Disposition: 11/17/23
Time of Disposition: 12:10
Patient with high blood pressure during this ER visit?: No
Discharge Problem:
Epileptic seizures, Epilepsy with status epilepticus
Prescriptions:
No Action
lamotrigine [Lamictal] 200 MG tablet
200 mg PO Q12H
melatonin 3 MG tablet
3 mg PO HS
primidone 250 MG tablet
250 mg PO Q12H
topiramate [Topamax] 200 MG tablet
200 mg PO BID
pyridoxine (vitamin B6) [Vitamin B-6] 100 MG tablet
300 mg PO BID
mirtazapine 15 MG tablet
15 mg PO HS
Patient Comments:
08/28/2020: take w/ 7.5mg = 22.5mg
diazepam [Valium] 10 MG tablet
10 mg PO BID@0800,1700
Patient Comments:
08/28/2020: last filled 07/05/20, 60 tabs for 30 days from [facility]
cholecalciferol (vitamin D3) 1,000 UNITS tablet
1,000 units PO DAILY
multivitamin with folic acid [Tab-A-Sandra] 1 TABLET tablet
1 tab PO DAILY
sennosides-docusate sodium [Senokot-S] 8.6-50 mg Tablet
2 tab-cap PO DAILY
cyanocobalamin (vitamin B-12) [Vitamin B-12] 1,000 mcg Tablet
1,000 mcg PO DAILY
folic acid 1 mg tablet
1 mg PO DAILY
aripiprazole 20 mg tablet
20 mg PO DAILY
triamcinolone acetonide 0.1 % Cream
1 applic TOPICAL HS PRN (Reason: eczema)
Rx Instructions:
apply to both hands
hydrocortisone [Anusol-HC] 2.5 % Cream With Perineal Applicator
1 applic [place] BID PRN (Reason: hemmorrhoids)
benzonatate 100 mg Capsule
100 mg PO TID PRN (Reason: cough)
Nayzilam 5 mg/spray (0.1 mL) [place],Non-Aerosol
1 spray INTRANASAL PRN PRN (Reason: seizure>3min/cluster)
Rx Instructions:
Seizure > 3 min/ Seizures cluster, may repeat one time in other nostril if seizure persists in additional 10 mins
naltrexone 50 mg Tablet
50 mg PO DAILY
pseudoephedrine-guaifenesin [Mucinex D] 60-600 mg Tablet Extended Release 12 Hr
1 tab PO BID PRN (Reason: cold symptoms)
valproic acid 250 mg capsule
1,000 mg PO Q12H
lamotrigine 25 mg tablet
50 mg PO HS
ibuprofen 400 mg Tablet
400 mg PO Q4H PRN (Reason: mild pain)
sertraline 50 mg tablet
50 mg PO DAILY
Referrals:
Enedelia Naylor CRNP [Family Provider] -
Hospital Transfer
Other hospital: [facility]
I certify that the patient requires transfer: Yes
Discussed case with accepting physician: Dr. Chou
Reason for transfer: higher level of care
Interventions
Interventions:
*Risk Screen - Suicide Last Done: 11/17/23 08:19
*General Assessment Last Done: 11/17/23 08:19
*Neglect/Abuse Screening Last Done: 11/17/23 08:19
*ED COVID-19 Vaccine History Last Done: 11/17/23 09:10
*Nursing Disposition Last Done: 11/17/23 13:27
ED- Cardiac Assessment Last Done: 11/17/23 09:23
ED- Neurological Assessment Last Done: 11/17/23 09:23
ED- Pulmonary Assessment Last Done: 11/17/23 09:23
ED-Skin Assessment Last Done: 11/17/23 09:23
Discharge Date and Time
Discharge Date/Time: 11/17/23 13:31
Print Language: FRENCH
[2023-11-17 09:25] VITALS: BP 102/53
[2023-11-17] MEDS: ZOFRAN 4 MG IV (10:26)
[2023-11-17 10:29] VITALS: BP 107/71
[2023-11-17 10:52] LABS: Blood Urea Nitrogen 12 mg/dl (7-17); Calcium 9.5 mg/dl (8.4-10.2); Carbon Dioxide 21 mmol/L (22-30); Chloride 109 mmol/L (98-107); Glucose 95 mg/dl (70-99); Potassium 4.6 mmol/L (3.5-5.1); Sodium 140 mmol/L (135-145); eGFR > 60.00
[2023-11-17 10:56] LABS: Depakane 63.1 ug/ml (50.0-120.0)
[2023-11-17 11:00] LABS: % Basophils 0.4 % (0-2); % Eosinophils 0.4 % (0-6); % Immature Granulocytes 0.1 % (0-0.5); % Lymphocytes 17.2 % (20.5-51.1); % Monocytes 5.5 % (1.7-9.3); % Neutrophils 76.4 % (42.2-75.2); Absolute Lymphocytes 1.2 10^3/uL (1.2-3.4); Absolute Monocytes 0.4 10^3/uL (0.1-0.6); Absolute Neutrophils 5.1 10^3/uL (1.4-6.5); Hematocrit 37.4 % (37.0-47.0); Hemoglobin 11.9 g/dL (12.0-16.0); Mean Corp Hgb Conc. 31.8 g/dL (33.0-37.0); Mean Corpuscular Hgb 27.6 pg (27.0-31.0); Mean Corpuscular Volume 86.8 fL (81.0-99.0); Mean Platelet Volume 9.7 fL (7.4-10.4); Nucleated Red Blood Cells % 0 %; Platelet Count 192 10^3/uL (130-400); Red Blood Cell Count 4.31 10^6/uL (4.20-5.40); Red Cell Dist. Width 14.7 % (11.5-14.5); White Blood Cell Count 6.7 10^3/uL (4.8-10.8)
[2023-11-17 11:46] VITALS: BP 119/76
[2023-11-17] MEDS: ATIVAN 1 MG IV (12:07)
[2023-11-17 12:28] VITALS: BP 104/73
[2023-11-17 13:00] VITALS: BP 108/67
[2023-11-18 17:13] LABS: Lamotrigine (Lamictal) 17.2 ug/mL (3.0-15.0)
== END 2023-11-17 13:31 | disposition short-term general hospital (02) ==
LOC: EMR 08:13
PROVIDERS: Physician Assistant Medical; EMERGENCY PHYSICIAN Emergency Medicine; FAMILY PHYSICIAN Nurse Practitioner Family
DX: G40.909 Epilepsy, unspecified, not intractable, without status epilepticus (principal); G40.901 Epilepsy, unspecified, not intractable, with status epilepticus; W19.XXXA Unspecified fall, initial encounter
CPT/HCPCS: 99291; 96374; 96375; 70450; 80048; 80164; 80175; 85025

== ENCOUNTER 2024-03-23 12:18 | Emergency (ER) | payer OTHER, SELFPAY ==
[2024-03-23 12:22] VITALS: BP 125/83
--- NOTE | 2024-03-23 14:04 | ED.GENMED ---
History of Present Illness
General
Chief Complaint: Seizure
Time Seen by Provider: 03/23/24 12:42
History of Present Illness
History of Present Illness:
38-year-old female with known seizure disorder, anxiety, bipolar disorder, mood disorder presenting after a seizure. Patient arrives from her facility where she had a seizure witnessed by staff. He reports that the seizure was typical, she put her
hands forward and fell to the ground, striking her head. Seizure lasted about 20 seconds. She has since been tired, however has returned to baseline, is asking to eat. She has been compliant with her medications. She has managed by neurology at
[facility] with recent medication adjustments. They note that she does have seizures relatively frequently. No report of recent fever or illness. Patient herself is denying any chest pain, difficulty breathing, visual changes,
abdominal pain, weakness, numbness to her extremities, or additional acute medical complaints. Per staff, patient requires a medical evaluation every time that she has a seizure.
Past History
Past History
ED Past Medical History: Seizures, Psychiatric (Bipolar affective disorder) and Other (Obesity)
ED Past Surgical History: Other (History of brain surgery, and foot surgery, VNS)
Social History
Tobacco: Non-smoker
Alcohol: None
Drug: None
Personal: Single
Living: other (SHARED SUPPORT)
Employment: Disabled
Family History
Family History: Unable to obtain
Phy Exam
Physical Exam
Physical Exam:
General: Well-appearing, no clinical signs of dehydration, nontoxic and in no acute distress
HEENT: protecting airway. Small abrasion to the forehead.
Neck: appears supple
CV: Normal heart rate, regular rhythm
Resp: No accessory muscle use, no increased work of breathing, lungs clear to auscultation bilaterally
Abd: Soft and non-distended, no tenderness to palpation
Extremities: No deformities, no swelling, no erythema
Neuro: alert, no focal neurologic deficit
: deferred
Rectal: deferred
Psych: Normal affect
Skin: Intact
Course
Orders/Labs/Results
Orders:
Orders
03/23/24 13:36
CT Head W/o Iv Contrast Urgent
Comment:
Reason For Exam: seizure
Vital Signs
Initial and Last Documented VS:
Initial Vital Signs
Temp Pulse Resp BP Pulse Ox
98.2 F 88 20 125/83 99
03/23/24 12:22 03/23/24 12:22 03/23/24 12:22 03/23/24 12:22 03/23/24 12:22
Last Documented Vital Signs
Temp Pulse Resp BP Pulse Ox
98.2 F 88 20 125/83 99
03/23/24 12:22 03/23/24 12:22 03/23/24 12:22 03/23/24 12:22 03/23/24 12:22
MDM/Problems Addressed
MDM/Problems Addressed:
38-year-old female with a known seizure disorder presenting after a seizure. Vital signs on arrival are normal.
On exam patient is well-appearing, resting comfortably, no acute distress or discomfort. She is alert, answering questions appropriately, unremarkable neurologic exam. She is afebrile, nontoxic. Suspect breakthrough seizure in a known patient
with seizure disorder. Patient has a mild abrasion to the superior aspect of the forehead. Staff notes that she has had slight increased frequency of seizures as of late. This reason we will screen with CT brain.
15:20 - CT without acute abnormality. At this time feel stable for discharge with continued outpatient follow-up for her known seizure disorder. Return precautions discussed and patient verbalized understanding
*Critical Care Note
Total Time (30-74mins, 75-104mins- exclusive of procedures): Not Applicable
ED Attending Note
-
Portions of this chart may have been created with voice recognition software.� Occasional wrong word or��sound alike� substitutions may have occurred due to the inherent limitations of voice recognition software.
Discharge Plan
Departure
Prescriptions:
No Action
lamotrigine [Lamictal] 200 MG tablet
200 mg PO Q12H
melatonin 3 MG tablet
3 mg PO HS
primidone 250 MG tablet
250 mg PO Q12H
topiramate [Topamax] 200 MG tablet
200 mg PO BID
pyridoxine (vitamin B6) [Vitamin B-6] 100 MG tablet
300 mg PO BID
mirtazapine 15 MG tablet
15 mg PO HS
Patient Comments:
08/28/2020: take w/ 7.5mg = 22.5mg
diazepam [Valium] 10 MG tablet
10 mg PO BID@0800,1700
Patient Comments:
08/28/2020: last filled 07/05/20, 60 tabs for 30 days from [facility]
cholecalciferol (vitamin D3) 1,000 UNITS tablet
1,000 units PO DAILY
multivitamin with folic acid [Tab-A-Sandra] 1 TABLET tablet
1 tab PO DAILY
sennosides-docusate sodium [Senokot-S] 8.6-50 mg Tablet
2 tab-cap PO DAILY
cyanocobalamin (vitamin B-12) [Vitamin B-12] 1,000 mcg Tablet
1,000 mcg PO DAILY
folic acid 1 mg tablet
1 mg PO DAILY
aripiprazole 20 mg tablet
20 mg PO DAILY
triamcinolone acetonide 0.1 % Cream
1 applic TOPICAL HS PRN (Reason: eczema)
Rx Instructions:
apply to both hands
hydrocortisone [Anusol-HC] 2.5 % Cream With Perineal Applicator
1 applic [place] BID PRN (Reason: hemmorrhoids)
benzonatate 100 mg Capsule
100 mg PO TID PRN (Reason: cough)
Nayzilam 5 mg/spray (0.1 mL) [place],Non-Aerosol
1 spray INTRANASAL PRN PRN (Reason: seizure>3min/cluster)
Rx Instructions:
Seizure > 3 min/ Seizures cluster, may repeat one time in other nostril if seizure persists in additional 10 mins
naltrexone 50 mg Tablet
50 mg PO DAILY
pseudoephedrine-guaifenesin [Mucinex D] 60-600 mg Tablet Extended Release 12 Hr
1 tab PO BID PRN (Reason: cold symptoms)
valproic acid 250 mg capsule
1,000 mg PO Q12H
lamotrigine 25 mg tablet
50 mg PO HS
ibuprofen 400 mg Tablet
400 mg PO Q4H PRN (Reason: mild pain)
sertraline 50 mg tablet
50 mg PO DAILY
Referrals:
Enedelia Naylor CRNP [Family Provider] -
Interventions
Interventions:
*General Assessment Last Done: 03/23/24 12:22
Discharge Date and Time
Print Language: TAIWANESE
[2024-03-23 15:58] VITALS: BP 122/80
== END 2024-03-23 15:59 | disposition home or self-care (01) ==
LOC: EMR 12:18
PROVIDERS: EMERGENCY PHYSICIAN Student in an Organized Health Care Education/Training Program; FAMILY PHYSICIAN Nurse Practitioner Family
DX: G40.909 Epilepsy, unspecified, not intractable, without status epilepticus (principal); S00.81XA Abrasion of other part of head, initial encounter; W19.XXXA Unspecified fall, initial encounter; Y92.89 Other specified places as the place of occurrence of the external cause; F31.9 Bipolar disorder, unspecified; F41.9 Anxiety disorder, unspecified; E66.9 Obesity, unspecified; Z88.1 Allergy status to other antibiotic agents; Z88.5 Allergy status to narcotic agent; Z88.8 Allergy status to other drugs, medicaments and biological substances
CPT/HCPCS: 99284; 70450

== ENCOUNTER 2024-03-31 14:29 | Emergency (ER) | payer OTHER, SELFPAY ==
[2024-03-31 14:33] VITALS: BP 117/77
--- NOTE | 2024-03-31 16:36 | ED.GENMED ---
History of Present Illness
General
Chief Complaint: Seizure
Source: patient and medicare contact specialist
Time Seen by Provider: 03/31/24 16:20
History of Present Illness
History of Present Illness:
38-year-old female with past medical history of seizure and psychiatric illness presenting to the ER for evaluation with caregivers report that patient had seizure earlier today and struck her head during one of the seizures and per their policy
have to come to the ER for the patient to be evaluated. Patient notes a small abrasion to the right parietal region but otherwise no other concerns. Caregivers state patient currently acting her usual self.
Past History
Past History
ED Past Medical History: Seizures, Psychiatric (Bipolar affective disorder) and Other (Obesity)
ED Past Surgical History: Other (History of brain surgery, and foot surgery, VNS)
Social History
Tobacco: Non-smoker
Alcohol: None
Drug: None
Personal: Single
Living: other (SHARED SUPPORT)
Employment: Disabled
Family History
Family History: Unable to obtain
Review of Systems
Review of Systems
All Other Systems: ROS reviewed and negative except as documented in HPI and ROS
Phy Exam
Physical Exam
Physical Exam:
GENERAL: Alert , in no apparent distress, smiling and pleasant
EYE: conjunctiva clear
Head: Small abrasion/contusion to the right parietal region without any active bleeding
NECK: Supple,
ENT: mmm.
LUNGS: no acute respiratory distress
NEUROLOGICAL: Alert and oriented
SKIN: Warm and dry, skin intact.
MUSCULOSKELETAL: well perfused.
PSYCH: Normal and appropriate interaction.
Scores
Heart Failure Risk
Heart Failure Risk Score: Not Applicable
Heart Score for Chest Pain Patients
STEMI patient?: Not applicable
Withdrawal Assessment of Alcohol
Withdrawal Assessment Completed?: Not applicable
Course
Orders/Labs/Results
Orders:
Orders
03/31/24 15:03
CT Head W/o Iv Contrast Urgent
Comment:
Reason For Exam: hi head
Vital Signs
Initial and Last Documented VS:
Initial Vital Signs
Temp Pulse Resp BP Pulse Ox
98.2 F 84 20 117/77 99
03/31/24 14:33 03/31/24 14:33 03/31/24 14:33 03/31/24 14:33 03/31/24 14:33
Last Documented Vital Signs
Temp Pulse Resp BP Pulse Ox
98.2 F 78 18 115/64 98
03/31/24 14:33 03/31/24 16:39 03/31/24 16:39 03/31/24 16:39 03/31/24 16:39
MDM/Problems Addressed
Differential Diagnosis Includes:
Breakthrough seizure, contusion, intracranial bleeding, mass
MDM/Problems Addressed:
38-year-old female presenting to the emergency department for evaluation after having a breakthrough seizure resulting in superficial head injury and due to policy of patient's living arrangements had to be sent to the ER for further evaluation.
Patient reports no symptoms presently and feels quite well. CT of the head ordered and ultimately without any acute pathology. Patient remained stable and without any seizure here. Stable for discharge back to living facility and caretakers are
aware of return precautions.
*Radiology
Radiology exam reviewed: radiology read reviewed
*Pulse Oximetry
Patient hypoxic: no
*Critical Care Note
Total Time (30-74mins, 75-104mins- exclusive of procedures): Not Applicable
ED Attending Note
-
Portions of this chart may have been created with voice recognition software.� Occasional wrong word or��sound alike� substitutions may have occurred due to the inherent limitations of voice recognition software.
Discharge Plan
Departure
Patient Disposition: Home (Routine Discharge)
Date of Disposition: 03/31/24
Time of Disposition: 16:36
Patient with high blood pressure during this ER visit?: No
Discharge Problem:
Seizure, Abrasion of scalp
Instructions: Seizures, Adult (DC)
Prescriptions:
No Action
lamotrigine [Lamictal] 200 MG tablet
200 mg PO Q12H
melatonin 3 MG tablet
3 mg PO HS
primidone 250 MG tablet
250 mg PO Q12H
topiramate [Topamax] 200 MG tablet
200 mg PO BID
pyridoxine (vitamin B6) [Vitamin B-6] 100 MG tablet
300 mg PO BID
mirtazapine 15 MG tablet
15 mg PO HS
Patient Comments:
08/28/2020: take w/ 7.5mg = 22.5mg
diazepam [Valium] 10 MG tablet
10 mg PO BID@0800,1700
Patient Comments:
08/28/2020: last filled 07/05/20, 60 tabs for 30 days from [facility]
cholecalciferol (vitamin D3) 1,000 UNITS tablet
1,000 units PO DAILY
multivitamin with folic acid [Tab-A-Sandra] 1 TABLET tablet
1 tab PO DAILY
sennosides-docusate sodium [Senokot-S] 8.6-50 mg Tablet
2 tab-cap PO DAILY
cyanocobalamin (vitamin B-12) [Vitamin B-12] 1,000 mcg Tablet
1,000 mcg PO DAILY
folic acid 1 mg tablet
1 mg PO DAILY
aripiprazole 20 mg tablet
20 mg PO DAILY
triamcinolone acetonide 0.1 % Cream
1 applic TOPICAL HS PRN (Reason: eczema)
Rx Instructions:
apply to both hands
hydrocortisone [Anusol-HC] 2.5 % Cream With Perineal Applicator
1 applic [place] BID PRN (Reason: hemmorrhoids)
benzonatate 100 mg Capsule
100 mg PO TID PRN (Reason: cough)
Nayzilam 5 mg/spray (0.1 mL) [place],Non-Aerosol
1 spray INTRANASAL PRN PRN (Reason: seizure>3min/cluster)
Rx Instructions:
Seizure > 3 min/ Seizures cluster, may repeat one time in other nostril if seizure persists in additional 10 mins
naltrexone 50 mg Tablet
50 mg PO DAILY
pseudoephedrine-guaifenesin [Mucinex D] 60-600 mg Tablet Extended Release 12 Hr
1 tab PO BID PRN (Reason: cold symptoms)
valproic acid 250 mg capsule
1,000 mg PO Q12H
lamotrigine 25 mg tablet
50 mg PO HS
ibuprofen 400 mg Tablet
400 mg PO Q4H PRN (Reason: mild pain)
sertraline 50 mg tablet
50 mg PO DAILY
Interventions
Interventions:
*Risk Screen - Suicide Last Done: 03/31/24 14:33
*General Assessment Last Done: 03/31/24 14:33
*Neglect/Abuse Screening Last Done: 03/31/24 14:33
*Nursing Disposition Last Done: 03/31/24 16:45
ED- Cardiac Assessment Last Done: 03/31/24 16:40
ED- Neurological Assessment Last Done: 03/31/24 16:40
ED- Pulmonary Assessment Last Done: 03/31/24 16:40
Discharge Date and Time
Discharge Date/Time: 03/31/24 16:47
Print Language: UPPER SORBIAN
[2024-03-31 16:39] VITALS: BP 115/64
== END 2024-03-31 16:47 | disposition home or self-care (01) ==
LOC: EMR 14:29
PROVIDERS: EMERGENCY PHYSICIAN Emergency Medicine; FAMILY PHYSICIAN Nurse Practitioner Family
DX: G40.909 Epilepsy, unspecified, not intractable, without status epilepticus (principal); S00.01XA Abrasion of scalp, initial encounter; W22.8XXA Striking against or struck by other objects, initial encounter; Y93.9 Activity, unspecified
CPT/HCPCS: 99284; 70450

== ENCOUNTER 2024-05-22 18:18 | Emergency (ER) | payer OTHER, SELFPAY ==
[2024-05-22 18:23] VITALS: BP 109/78
[2024-05-22 21:04] VITALS: BP 116/63
[2024-05-22 23:19] VITALS: BP 120/65
--- NOTE | 2024-05-22 23:35 | ED.GENMED ---
History of Present Illness
General
Chief Complaint: Head Injury
Source: patient and youth care worker
Exam Limitations: none
Time Seen by Provider: 05/22/24 19:57
Nursing documentation reviewed up to this point in time: agreed with
History of Present Illness
History of Present Illness:
Patient to ED for evaluation of head injury after seizure at home. Known seizure history. Caregiver reports that she has frequent seizures despite seizure medications. Seizures last for just a few seconds and do not require any medication.
TOday she fell out of chair and hit back of head on ground. Caregiver reports she is acting like self. She follows with neurology at [place].
Past History
Past History
ED Past Medical History: Seizures, Psychiatric (Bipolar affective disorder) and Other (Obesity)
ED Past Surgical History: Other (History of brain surgery, and foot surgery, VNS)
Social History
Tobacco: Non-smoker
Alcohol: None
Drug: None
Personal: Single
Living: other (SHARED SUPPORT)
Employment: Disabled
Family History
Family History: Unable to obtain
Review of Systems
Review of Systems
Allergies reviewed?: Yes
All Other Systems: ROS reviewed and negative except as documented in HPI and ROS
Constitutional: Reports no symptoms
EENT: Reports no symptoms
Respiratory: Reports no symptoms
Cardiac: Reports no symptoms
ABD/GI: Reports no symptoms
: Reports no symptoms
Musculoskeletal: Reports no symptoms
Skin: Reports no symptoms
Neurological: Reports other (Seizure HIP HOP ARTIST)
Psychiatric: Reports no symptoms
Phy Exam
General Physical Exam
General Presentation: well appearing and no apparent distress
General age: appears stated age
General Skin: warm and dry
General Habitus: normal
General Mental: alert
Gastrointestinal Exam
Gastrointestinal Exam: non tender and soft
Neurological Exam
Neurological Exam: alert, oriented x3, CN II-XII intact, no motor deficits, no sensory deficits, speech normal and normal gait
Musculoskeletal Exam
Musculoskeletal Exam: full ROM and neuro vasc intact
Skin Exam
Skin Exam: normal color, warm/dry and no rash
Psychiatric Exam
Psychiatric Exam: normal mood/affect
Course
Orders/Labs/Results
Orders:
Orders
05/22/24 20:30
CT Head W/o Iv Contrast Urgent
Comment:
Reason For Exam: trauma, seizure
Vital Signs
Initial and Last Documented VS:
Initial Vital Signs
Temp Pulse Resp BP Pulse Ox
98.3 F 89 16 109/78 98
05/22/24 18:23 05/22/24 18:23 05/22/24 18:23 05/22/24 18:23 05/22/24 18:23
Last Documented Vital Signs
Temp Pulse Resp BP Pulse Ox
98.3 F 70 18 120/65 97
05/22/24 18:23 05/22/24 23:19 05/22/24 23:19 05/22/24 23:19 05/22/24 23:19
*Radiology
Radiology exam reviewed: radiology read reviewed
*Pulse Oximetry
Patient hypoxic: no
*Critical Care Note
Total Time (30-74mins, 75-104mins- exclusive of procedures): Not Applicable
ED Attending Note
-
Portions of this chart may have been created with voice recognition software.� Occasional wrong word or��sound alike� substitutions may have occurred due to the inherent limitations of voice recognition software.
Discharge Plan
Departure
Patient Disposition: Home (Routine Discharge)
Date of Disposition: 05/22/24
Time of Disposition: 22:50
Patient with high blood pressure during this ER visit?: No
Condition: Good
Covid-19: Not Applicable
Discharge Problem:
Seizure, Head injury
Instructions: Head Injury in Adults (DC)
Prescriptions:
No Action
lamotrigine [Lamictal] 200 MG tablet
200 mg PO Q12H
Rx Instructions:
8am & 8pm
melatonin 3 MG tablet
3 mg PO HS
Rx Instructions:
daily at 8pm
topiramate [Topamax] 200 MG tablet
200 mg PO BID
Rx Instructions:
8am & 8pm
mirtazapine 15 MG tablet
15 mg PO HS
Patient Comments:
08/28/2020: take w/ 7.5mg = 22.5mg
Rx Instructions:
daily at 8pm
aripiprazole 20 mg tablet
20 mg PO DAILY
Rx Instructions:
8pm daily
naltrexone 50 mg Tablet
50 mg PO DAILY
Rx Instructions:
daily at 8pm
valproic acid 250 mg capsule
1,000 mg PO Q12H
Rx Instructions:
8am & 8pm
famotidine 20 mg Tablet
20 mg PO HS
Rx Instructions:
daily at 8pm
pyridoxine (vitamin B6) [Vitamin B-6] 100 mg Tablet
300 mg PO BID
Rx Instructions:
8am & 8pm
rufinamide 200 mg Tablet
200 mg PO BID
Rx Instructions:
8am & 8pm
Referrals:
Enedelia Naylor CRNP [Family Provider] - Tomorrow
Interventions
Interventions:
*Risk Screen - Suicide Last Done: 05/22/24 18:23
*Neglect/Abuse Screening Last Done: 05/22/24 18:23
*Nursing Disposition Last Done: 05/22/24 23:19
ED- Neurological Assessment Last Done: 05/22/24 19:57
ED-Skin Assessment Last Done: 05/22/24 19:57
Discharge Date and Time
Discharge Date/Time: 05/22/24 23:20
Print Language: AZERI
== END 2024-05-22 23:20 | disposition home or self-care (01) ==
LOC: EMR 18:18
PROVIDERS: EMERGENCY PHYSICIAN Emergency Medicine; FAMILY PHYSICIAN Nurse Practitioner Family
DX: R56.9 Unspecified convulsions (principal); S09.90XA Unspecified injury of head, initial encounter; W07.XXXA Fall from chair, initial encounter; F31.9 Bipolar disorder, unspecified; E66.9 Obesity, unspecified
CPT/HCPCS: 99284; 70450

== ENCOUNTER 2024-06-15 12:44 | Emergency (ER) | payer OTHER, MEDICARE, SELFPAY ==
[2024-06-15 12:56] VITALS: BP 127/74
--- NOTE | 2024-06-15 14:12 | EDRN ---
Pt is w/ Shared Support and has 2 staff w/ her at all times. Pt needed support/assist to walk to BR. Pt is known for intermittent falls, needs assist to ambulate intermittently, and has history of seizures so if falls needs to be cleared prior to
returning to her home w/ her caregivers.
--- NOTE | 2024-06-15 14:41 | ED.GENMED ---
History of Present Illness
General
Chief Complaint: Head Injury
Time Seen by Provider: 06/15/24 14:23
History of Present Illness
History of Present Illness:
39-year-old female with history of seizure disorder presenting after a fall. Patient arrives from her facility, had a witnessed fall. Patient reports she fell forward striking her face. Fall was witnessed by staff, no loss of consciousness.
Patient denies any headache, arrives with a small abrasion on her face. No report of any vomiting. No report of any seizure before or after the fall. Staff report the patient is acting normally. Patient without any acute medical complaints. No
additional history obtained at this time
Past History
Past History
ED Past Medical History: Seizures, Psychiatric (Bipolar affective disorder) and Other (Obesity)
ED Past Surgical History: Other (History of brain surgery, and foot surgery, VNS)
Social History
Tobacco: Non-smoker
Alcohol: None
Drug: None
Personal: Single
Living: other (SHARED SUPPORT)
Employment: Disabled
Family History
Family History: Unable to obtain
Phy Exam
Physical Exam
Physical Exam:
General: Well-appearing, no clinical signs of dehydration, nontoxic and in no acute distress
Head: Small superficial abrasion above the left eyebrow.
HEENT: protecting airway, extraocular movements intact, no extraocular swelling
Neck: appears supple, no midline cervical tenderness
CV: Normal heart rate
Resp: No accessory muscle use, no increased work of breathing
Abd: no distension
Extremities: No deformities, no swelling
Neuro: alert, no focal neurologic deficit
: deferred
Rectal: deferred
Psych: Normal affect
Skin: Intact
Course
Vital Signs
Initial and Last Documented VS:
Initial Vital Signs
Temp Pulse Resp BP Pulse Ox
98.7 F 82 20 127/74 100
06/15/24 12:56 06/15/24 12:56 06/15/24 12:56 06/15/24 12:56 06/15/24 12:56
Last Documented Vital Signs
Temp Pulse Resp BP Pulse Ox
98.7 F 82 20 127/74 100
06/15/24 12:56 06/15/24 12:56 06/15/24 12:56 06/15/24 12:56 06/15/24 12:56
MDM/Problems Addressed
MDM/Problems Addressed:
39-year-old female with history of seizure disorder presenting after a witnessed fall. Vital signs are normal
On exam patient is resting comfortably, no acute distress or discomfort. Patient without current medical acute complaints. Notes that she tripped, denies any preceding seizure or seizure afterward. No midline cervical neck tenderness. No report
of any vomiting, acting appropriately per staff. No indication for advanced CT brain imaging. Patient brought to the ER as protocol per patient's facility. Feel stable for discharge. Return precautions discussed and patient and staff verbalized
understanding
*Critical Care Note
Total Time (30-74mins, 75-104mins- exclusive of procedures): Not Applicable
ED Attending Note
-
Portions of this chart may have been created with voice recognition software.� Occasional wrong word or��sound alike� substitutions may have occurred due to the inherent limitations of voice recognition software.
Discharge Plan
Departure
Prescriptions:
No Action
lamotrigine [Lamictal] 200 MG tablet
200 mg PO Q12H
Rx Instructions:
8am & 8pm
melatonin 3 MG tablet
3 mg PO HS
Rx Instructions:
daily at 8pm
topiramate [Topamax] 200 MG tablet
200 mg PO BID
Rx Instructions:
8am & 8pm
mirtazapine 15 MG tablet
15 mg PO HS
Patient Comments:
08/28/2020: take w/ 7.5mg = 22.5mg
Rx Instructions:
daily at 8pm
aripiprazole 20 mg tablet
20 mg PO DAILY
Rx Instructions:
8pm daily
naltrexone 50 mg Tablet
50 mg PO DAILY
Rx Instructions:
daily at 8pm
valproic acid 250 mg capsule
1,000 mg PO Q12H
Rx Instructions:
8am & 8pm
famotidine 20 mg Tablet
20 mg PO HS
Rx Instructions:
daily at 8pm
pyridoxine (vitamin B6) [Vitamin B-6] 100 mg Tablet
300 mg PO BID
Rx Instructions:
8am & 8pm
rufinamide 200 mg Tablet
200 mg PO BID
Rx Instructions:
8am & 8pm
Referrals:
UNKNOWN - PT DOES,NOT KNOW [Family Provider] -
Interventions
Interventions:
*Risk Screen - Suicide Last Done: 06/15/24 12:56
*General Assessment Last Done: 06/15/24 14:09
*Neglect/Abuse Screening Last Done: 06/15/24 14:00
ED- Fall Risk Assessment Last Done: 06/15/24 14:09
*ED COVID-19 Vaccine History Last Done: 06/15/24 14:09
ED- Neurological Assessment Last Done: 06/15/24 14:09
ED-Skin Assessment Last Done: 06/15/24 14:09
Discharge Date and Time
Print Language: ESTONIAN
--- NOTE | 2024-06-15 14:55 | EDRN ---
L forehead 2 cm abrasion very superficial, serous drainage only was extensively washed w/ saline, patted dry and dressed w/ double antibiotic ointment.
[2024-06-15 15:05] VITALS: BP 114/83
[2024-06-15 15:23] VITALS: BP 114/83
== END 2024-06-15 15:05 | disposition home or self-care (01) ==
LOC: EMR 12:44
PROVIDERS: EMERGENCY PHYSICIAN Student in an Organized Health Care Education/Training Program
DX: S00.212A Abrasion of left eyelid and periocular area, initial encounter (principal); W19.XXXA Unspecified fall, initial encounter; G40.909 Epilepsy, unspecified, not intractable, without status epilepticus
CPT/HCPCS: 99282

== ENCOUNTER 2024-08-12 19:46 | Emergency (ER) | payer OTHER, SELFPAY ==
[2024-08-12 19:49] VITALS: BP 116/76
--- NOTE | 2024-08-12 20:17 | ED.MUSCINJ ---
HPI-Injury
General
Chief Complaint: Head Injury
Source: patient
Time Seen by Provider: 08/12/24 20:12
History of Present Illness-Injury
Initial Injury comments:
39-year-old female presents from [facility] facility after falling at a dance. She was witnessed to lose her balance while dancing she fell to her knees and continued to fall forward hitting her head. There was no loss of conscious. She
denies headache nausea or vision change. She is not anticoagulated. She denies any neck pain or knee pain. No other complaints at this time
Past History
Past History
ED Past Medical History: Seizures, Psychiatric (Bipolar affective disorder) and Other (Obesity)
ED Past Surgical History: Other (History of brain surgery, and foot surgery, VNS)
Social History
Tobacco: Non-smoker
Alcohol: None
Drug: None
Personal: Single
Living: other (SHARED SUPPORT)
Employment: Disabled
Family History
Family History: Unable to obtain
Phy Exam
Physical Exam
Physical Exam:
General: Well-appearing female no acute respiratory distress
HEENT: Normocephalic atraumatic no scalp abrasion or hematoma pupils equal round reactive to light
Musculoskeletal exam: Spine is nontender good range of motion all extremities knees are nontender
Neurologic exam: Alert finger-nose intact [id number] intact good strength to the upper and lower extremities conversing appropriately extraocular motions are intact
MDM/Problems Addressed
Differential Diagnosis Includes:
Patient with fall while dancing. She lost her balance. Sounds like low energy mechanism hitting her knees first and then striking her head she has no symptoms of headache nausea vision change. There is no loss conscious. No indication for
advanced imaging such as CT scan at this time. Patient and staff that accompanies her are in agreement. Stable for discharge back to facility
*Critical Care Note
Total Time (30-74mins, 75-104mins- exclusive of procedures): Not Applicable
ED Attending Note
-
Portions of this chart may have been created with voice recognition software.� Occasional wrong word or��sound alike� substitutions may have occurred due to the inherent limitations of voice recognition software.
Discharge Plan
Departure
Patient Disposition: Home (Routine Discharge)
Date of Disposition: 08/12/24
Time of Disposition: 20:19
Patient with high blood pressure during this ER visit?: No
Discharge Problem:
Head injury
Instructions: Head Injury in Adults (DC)
Prescriptions:
No Action
lamotrigine [Lamictal] 200 MG tablet
200 mg PO Q12H
Rx Instructions:
8am & 8pm
melatonin 3 MG tablet
3 mg PO HS
Rx Instructions:
daily at 8pm
topiramate [Topamax] 200 MG tablet
200 mg PO BID
Rx Instructions:
8am & 8pm
mirtazapine 15 MG tablet
15 mg PO HS
Patient Comments:
08/28/2020: take w/ 7.5mg = 22.5mg
Rx Instructions:
daily at 8pm
aripiprazole 20 mg tablet
20 mg PO DAILY
Rx Instructions:
8pm daily
naltrexone 50 mg Tablet
50 mg PO DAILY
Rx Instructions:
daily at 8pm
valproic acid 250 mg capsule
1,000 mg PO Q12H
Rx Instructions:
8am & 8pm
famotidine 20 mg Tablet
20 mg PO HS
Rx Instructions:
daily at 8pm
pyridoxine (vitamin B6) [Vitamin B-6] 100 mg Tablet
300 mg PO BID
Rx Instructions:
8am & 8pm
rufinamide 200 mg Tablet
200 mg PO BID
Rx Instructions:
8am & 8pm
Activity Restrictions/Additional Instructions:
Ice to the sore spot. You may take Tylenol for pain. Return if worse otherwise follow-up with your doctor
Interventions
Interventions:
*General Assessment Last Done: 08/12/24 19:49
Discharge Date and Time
Print Language: PORTUGUESE
== END 2024-08-12 20:45 | disposition home or self-care (01) ==
LOC: EMR 19:46
PROVIDERS: EMERGENCY PHYSICIAN Emergency Medicine
DX: S09.90XA Unspecified injury of head, initial encounter (principal); W18.39XA Other fall on same level, initial encounter; Y93.41 Activity, dancing
CPT/HCPCS: 99282

== ENCOUNTER 2024-09-29 13:38 | Emergency (ER) | payer OTHER, SELFPAY ==
[2024-09-29 13:40] VITALS: BP 132/77
--- NOTE | 2024-09-29 14:22 | ED.GENMED ---
History of Present Illness
General
Chief Complaint: Head Injury
Source: patient and ocular care technologist
Time Seen by Provider: 09/29/24 14:03
History of Present Illness
History of Present Illness:
39yoF with a history of seizures and bipolar disorder presenting with her staff member for evaluation after head injury. Injury occurred less than 2 hours ago. Patient was walking tripped and fell forward striking her head on the hardwood. There
was no loss of consciousness. Patient reports feeling dizzy and having a headache. She denies any visual changes, neck pain, vomiting. She does not take any blood thinners.
Past History
Past History
ED Past Medical History: Seizures, Psychiatric (Bipolar affective disorder) and Other (Obesity)
ED Past Surgical History: Other (History of brain surgery, and foot surgery, VNS)
Social History
Tobacco: Non-smoker
Alcohol: None
Drug: None
Personal: Single
Living: other (SHARED SUPPORT)
Employment: Disabled
Family History
Family History: Unable to obtain
Phy Exam
General Physical Exam
General Presentation: well appearing and no apparent distress
General age: appears stated age
General Skin: warm and dry
General Habitus: normal
General Mental: alert
ENT Exam
ENT Exam: normocephalic and other (Forehead abrasions with hematoma. Bilateral cerumen impaction.)
Additional ENT: No cervical spine tenderness with full ROM.
Eye Exam
Eye Exam: PERRL and conjunctiva normal
Neurological Exam
Neurological Exam: alert
[place] Coma Scale
Eye Opening: Spontaneous
Verbal Response: Oriented
Motor Response: Obeys Commands
GCS Total Score: 15
Skin Exam
Skin Exam: normal color and warm/dry
Psychiatric Exam
Psychiatric Exam: normal mood/affect
Course
Orders/Labs/Results
Orders:
Orders
09/29/24 14:21
CT Head W/o Iv Contrast Urgent
Comment:
Reason For Exam: head injury
Ice Pack-Treatment DIRECTED
Location: forehead
Vital Signs
Initial and Last Documented VS:
Initial Vital Signs
Temp Pulse Resp BP Pulse Ox
98.6 F 83 16 132/77 98
09/29/24 13:40 09/29/24 13:40 09/29/24 13:40 09/29/24 13:40 09/29/24 13:40
Last Documented Vital Signs
Temp Pulse Resp BP Pulse Ox
98.6 F 83 16 132/77 98
09/29/24 13:40 09/29/24 13:40 09/29/24 13:40 09/29/24 13:40 09/29/24 13:40
MDM/Problems Addressed
Differential Diagnosis Includes:
39yoF here after a head injury. Tripped and struck head on floor. No LOC. C/o headache and dizziness. Hx of seizures and prior craniectomy. Forehead abrasion/small hematoma noted on exam. Differential diagnosis includes: closed head injury,
concussion, intracranial hemorrhage, skull fracture
CT head obtained which is negative for acute findings. Patient stable for discharge.
*Critical Care Note
Total Time (30-74mins, 75-104mins- exclusive of procedures): Not Applicable
ED Attending Note
-
Portions of this chart may have been created with voice recognition software.� Occasional wrong word or��sound alike� substitutions may have occurred due to the inherent limitations of voice recognition software.
Discharge Plan
Departure
Patient Disposition: Home (Routine Discharge)
Date of Disposition: 09/29/24
Time of Disposition: 18:00
Patient with high blood pressure during this ER visit?: No
Discharge Problem:
Closed head injury
Instructions: Head Injury in Adults (DC)
Prescriptions:
No Action
lamotrigine [Lamictal] 200 MG tablet
200 mg PO Q12H
Rx Instructions:
8am & 8pm
melatonin 3 MG tablet
3 mg PO HS
Rx Instructions:
daily at 8pm
topiramate [Topamax] 200 MG tablet
200 mg PO BID
Rx Instructions:
8am & 8pm
mirtazapine 15 MG tablet
15 mg PO HS
Patient Comments:
08/28/2020: take w/ 7.5mg = 22.5mg
Rx Instructions:
daily at 8pm
aripiprazole 20 mg tablet
20 mg PO DAILY
Rx Instructions:
8pm daily
naltrexone 50 mg Tablet
50 mg PO DAILY
Rx Instructions:
daily at 8pm
valproic acid 250 mg capsule
1,000 mg PO Q12H
Rx Instructions:
8am & 8pm
famotidine 20 mg Tablet
20 mg PO HS
Rx Instructions:
daily at 8pm
pyridoxine (vitamin B6) [Vitamin B-6] 100 mg Tablet
300 mg PO BID
Rx Instructions:
8am & 8pm
rufinamide 200 mg Tablet
200 mg PO BID
Rx Instructions:
8am & 8pm
Referrals:
Enedelia Naylor CRNP [Family Provider] -
Activity Restrictions/Additional Instructions:
Your CT scan is negative for acute findings.
Please follow-up with your family doctor. Return to the ER with any worsening symptoms.
Interventions
Interventions:
*Risk Screen - Suicide Last Done: 09/29/24 13:40
*General Assessment Last Done: 09/29/24 13:40
*Neglect/Abuse Screening Last Done: 09/29/24 14:21
*ED COVID-19 Vaccine History Last Done: 09/29/24 13:40
*Nursing Disposition Last Done: 09/29/24 18:03
ED- Neurological Assessment Last Done: 09/29/24 14:21
ED-Skin Assessment Last Done: 09/29/24 14:21
Discharge Date and Time
Discharge Date/Time: 09/29/24 18:04
Print Language: KAZAKH
== END 2024-09-29 18:04 | disposition home or self-care (01) ==
LOC: EMR 13:38
PROVIDERS: EMERGENCY PHYSICIAN Emergency Medicine; FAMILY PHYSICIAN Nurse Practitioner Family
DX: S00.83XA Contusion of other part of head, initial encounter (principal); S00.81XA Abrasion of other part of head, initial encounter; W01.198A Fall on same level from slipping, tripping and stumbling with subsequent striking against other object, initial encounter
CPT/HCPCS: 99284; 70450

== ENCOUNTER 2024-10-15 15:42 | Emergency (ER) | payer OTHER, SELFPAY ==
[2024-10-15 15:45] VITALS: BP 117/79
--- NOTE | 2024-10-15 18:43 | ED.GENMED ---
History of Present Illness
General
Chief Complaint: Seizure
Source: patient
Time Seen by Provider: 10/15/24 18:40
History of Present Illness
History of Present Illness:
39-year-old female with past medical history of seizure disorder, anxiety/bipolar disorder, OCD, mood disorder presenting to the ER for evaluation after having a seizure at her living facility today, fell back and struck her head. Due to the
facilities policy, if patient is to hit her head she needs to be evaluated in the hospital. Patient has no other concerns and states she feels as if she is in her usual state of health, caregiver who is with her also states patient is acting
normal. They do note that she has a abrasion/contusion in the left temporal. No other injuries report sustained.
Past History
Past History
ED Past Medical History: Seizures, Psychiatric (Bipolar affective disorder) and Other (Obesity)
ED Past Surgical History: Other (History of brain surgery, and foot surgery, VNS)
Social History
Tobacco: Non-smoker
Alcohol: None
Drug: None
Personal: Single
Living: other (SHARED SUPPORT)
Employment: Disabled
Family History
Family History: Unable to obtain
Review of Systems
Review of Systems
All Other Systems: ROS reviewed and negative except as documented in HPI and ROS
Phy Exam
Physical Exam
Physical Exam:
GENERAL: Alert , in no apparent distress
EYE: conjunctiva clear
Head: Small contusion to the left parietal region, no active bleeding
NECK: Supple,
ENT: mmm.
LUNGS: no acute respiratory distress
NEUROLOGICAL: Alert and oriented
SKIN: Warm and dry, skin intact.
MUSCULOSKELETAL: well perfused.
PSYCH: Normal and appropriate interaction.
Scores
Heart Failure Risk
Heart Failure Risk Score: Not Applicable
Heart Score for Chest Pain Patients
STEMI patient?: Not applicable
Withdrawal Assessment of Alcohol
Withdrawal Assessment Completed?: Not applicable
Course
Orders/Labs/Results
Orders:
Orders
10/15/24 15:49
CT Head W/o Iv Contrast Urgent
Comment:
Reason For Exam: head strike during seizure
Vital Signs
Initial and Last Documented VS:
Initial Vital Signs
Temp Pulse Resp BP Pulse Ox
98.9 F 94 18 117/79 100
10/15/24 15:45 10/15/24 15:45 10/15/24 15:45 10/15/24 15:45 10/15/24 15:45
Last Documented Vital Signs
Temp Pulse Resp BP Pulse Ox
98.9 F 94 18 117/79 100
10/15/24 15:45 10/15/24 15:45 10/15/24 15:45 10/15/24 15:45 10/15/24 15:45
MDM/Problems Addressed
Differential Diagnosis Includes:
Breakthrough seizure, status epilepticus, intracranial bleeding, contusion
MDM/Problems Addressed:
39-year-old female presenting to the ER for evaluation following a breakthrough seizure resulting in minor head injury. Based off of the facility's policy patient needed to be evaluated in the ER. CT of the head was ordered, no acute intracranial
bleeding on CT scan. Patient feels well, tolerating p.o. Stable for discharge back to her living facility.
*Radiology
Radiology exam reviewed: radiology read reviewed
*Pulse Oximetry
Patient hypoxic: no
*Critical Care Note
Total Time (30-74mins, 75-104mins- exclusive of procedures): Not Applicable
Patient Management
Social determinants of health affecting care: Living situation
ED Attending Note
-
Portions of this chart may have been created with voice recognition software.� Occasional wrong word or��sound alike� substitutions may have occurred due to the inherent limitations of voice recognition software.
Discharge Plan
Departure
Patient Disposition: Home (Routine Discharge)
Date of Disposition: 10/15/24
Time of Disposition: 18:45
Patient with high blood pressure during this ER visit?: No
Discharge Problem:
Seizure, Head injury
Instructions: Seizures, Adult (DC)
Prescriptions:
No Action
lamotrigine [Lamictal] 200 MG tablet
200 mg PO Q12H
Rx Instructions:
8am & 8pm
melatonin 3 MG tablet
3 mg PO HS
Rx Instructions:
daily at 8pm
topiramate [Topamax] 200 MG tablet
200 mg PO BID
Rx Instructions:
8am & 8pm
mirtazapine 15 MG tablet
15 mg PO HS
Patient Comments:
08/28/2020: take w/ 7.5mg = 22.5mg
Rx Instructions:
daily at 8pm
aripiprazole 20 mg tablet
20 mg PO DAILY
Rx Instructions:
8pm daily
naltrexone 50 mg Tablet
50 mg PO DAILY
Rx Instructions:
daily at 8pm
valproic acid 250 mg capsule
1,000 mg PO Q12H
Rx Instructions:
8am & 8pm
famotidine 20 mg Tablet
20 mg PO HS
Rx Instructions:
daily at 8pm
pyridoxine (vitamin B6) [Vitamin B-6] 100 mg Tablet
300 mg PO BID
Rx Instructions:
8am & 8pm
rufinamide 200 mg Tablet
200 mg PO BID
Rx Instructions:
8am & 8pm
Interventions
Interventions:
*Risk Screen - Suicide Last Done: 10/15/24 15:45
*General Assessment Last Done: 10/15/24 15:45
*Neglect/Abuse Screening Last Done: 10/15/24 19:01
*ED- Fall Risk Assessment Last Done: 10/15/24 19:01
*ED COVID-19 Vaccine History Last Done: 10/15/24 19:01
*Nursing Disposition Last Done: 10/15/24 19:01
ED- Cardiac Assessment Last Done: 10/15/24 19:00
ED- Neurological Assessment Last Done: 10/15/24 19:00
ED- Pulmonary Assessment Last Done: 10/15/24 19:00
Discharge Date and Time
Discharge Date/Time: 10/15/24 19:02
Print Language: DANISH
== END 2024-10-15 19:02 | disposition home or self-care (01) ==
LOC: EMR 15:42
PROVIDERS: EMERGENCY PHYSICIAN Emergency Medicine; FAMILY PHYSICIAN Nurse Practitioner Family
DX: G40.909 Epilepsy, unspecified, not intractable, without status epilepticus (principal); S09.90XA Unspecified injury of head, initial encounter; S00.83XA Contusion of other part of head, initial encounter; S00.81XA Abrasion of other part of head, initial encounter; W19.XXXA Unspecified fall, initial encounter; Y92.89 Other specified places as the place of occurrence of the external cause; F41.9 Anxiety disorder, unspecified; F31.9 Bipolar disorder, unspecified; F42.9 Obsessive-compulsive disorder, unspecified; E66.9 Obesity, unspecified; Z88.1 Allergy status to other antibiotic agents; Z88.5 Allergy status to narcotic agent; Z88.8 Allergy status to other drugs, medicaments and biological substances
CPT/HCPCS: 99284; 70450